=== PATIENT | female | born 1945 | race Caucasian/White ===

== ENCOUNTER 2017-01-02 11:39 | Observation (INO) | payer MEDICARE, BC ==
[2017-01-02] MEDS ORDERED: SODIUM CHLORIDE 0.9% 1,000 ML IV STA (12:02)
[2017-01-02] MEDS ORDERED: MECLIZINE 12.5 MG TAB PO STA (12:03)
[2017-01-02] MEDS ORDERED: METOCLOPRAMIDE 5 MG/ML 2 ML VIAL IVP STA (12:03)
--- NOTE | 2017-01-02 12:05 | ED ---
General Adult HPI - General Chief complaint: Dizziness Stated complaint: weakness Time Seen by Provider: 01/02/17 11:59 Source: patient, RN notes reviewed Mode of arrival: wheelchair Limitations: no limitations - History of Present Illness Initial comments: Patient is a pleasant 71-year-old female presenting to the emergency department with dizziness. Symptoms started a couple of weeks ago. Symptoms have progressively worsened. Symptoms are positional. Patient feels a spinning sensation. Symptoms worsen with upright position and improved with lying down or rest. Patient feels she is leaning towards left side. Patient denies any left-sided weakness. - Related Data Home Medications Medication Instructions Recorded Confirmed Alendronate Sodium [Fosamax] 70 mg PO KING 01/02/17 01/02/17 Amitriptyline HCl [Elavil] 10 mg PO DAILY 01/02/17 01/02/17 Aspirin [Adult Low Dose Aspirin EC] 81 mg PO DAILY 01/02/17 01/02/17 Clopidogrel [Plavix] 75 mg PO DAILY 01/02/17 01/02/17 Losartan/Hydrochlorothiazide 1 tab PO DAILY 01/02/17 01/02/17 [Losartan-Hctz 50-12.5 mg Tab] Simvastatin [Zocor] 40 mg PO HS 01/02/17 01/02/17 Allergies Allergy/AdvReac Type Severity Reaction Status Date / Time Sulfa (Sulfonamide Allergy Swelling Verified 01/02/17 13:37 Antibiotics) Review of Systems ROS Statement: Those systems with pertinent positive or pertinent negative responses have been documented in the HPI. ROS Other: All systems not noted in ROS Statement are negative. Constitutional: Denies: fever Eyes: Denies: eye pain ENT: Denies: ear pain Respiratory: Denies: cough Cardiovascular: Denies: chest pain Endocrine: Denies: fatigue Gastrointestinal: Denies: abdominal pain Genitourinary: Denies: dysuria Musculoskeletal: Denies: back pain Skin: Denies: rash Neurological: Reports: vertigo. Denies: headache, weakness Past Medical History Past Medical History: CVA/TIA, Hyperlipidemia, Hypertension History of Any Multi-Drug Resistant Organisms: None Reported Past Surgical History: No Surgical Hx Reported Past Psychological History: Anxiety Smoking Status: Never smoker Past Alcohol Use History: None Reported Past Drug Use History: None Reported General Exam Limitations: no limitations General appearance: alert, in no apparent distress Head exam: Present: atraumatic Eye exam: Present: normal appearance, PERRL, EOMI. Absent: nystagmus ENT exam: Present: normal oropharynx Neck exam: Present: normal inspection Respiratory exam: Present: normal lung sounds bilaterally Cardiovascular Exam: Present: regular rate, normal rhythm GI/Abdominal exam: Present: soft. Absent: tenderness Extremities exam: Present: normal inspection Neurological exam: Present: alert, CN II-XII intact. Absent: motor sensory deficit Expanded Speech: Present: fluid speech Cranial nerves: EOM's Intact: Normal, Facial Sensation: Normal Cerebellar function: Finger to Nose: Normal Sensory exam: Upper Extremity Light Touch: Normal, Lower Extremity Light Touch: Normal Motor strength exam: RUE: 5, LUE: 5, RLE: 5, LLE: 5 Eye Response: (4) open spontaneously Motor Response: (6) obeys commands Verbal Response: (5) oriented Psychiatric exam: Present: normal affect, normal mood Skin exam: Absent: rash Course Vital Signs 01/02/17 01/02/17 11:51 14:21 Temperature 98.3 F Pulse Rate 89 73 Respiratory 18 18 Rate Blood Pressure 196/92 122/57 O2 Sat by Pulse 97 98 Oximetry EKG Findings - EKG Comments: EKG Findings:: Normal sinus rhythm 76. KS 150. QRS 76. QT 402. QTC 452. Left axis. Normal QRS. No acute ST change. Medical Decision Making - Medical Decision Making Patient reevaluated and updated. Case discussed with Dr. cervantes, who will admit for Dr. Campos. Patient is improved however still has some dizziness. - Lab Data Result diagrams: 01/02/17 12:10 01/02/17 12:10 Lab Results 01/02/17 01/02/17 01/02/17 Range/Units 12:10 12:10 12:10 WBC 8.0 (3.8-10.6) k/uL RBC 4.53 (3.80-5.40) m/uL Hgb 14.0 (11.4-16.0) gm/dL Hct 40.9 (34.0-46.0) % MCV 90.2 (80.0-100.0) fL MCH 30.9 (25.0-35.0) pg MCHC 34.2 (31.0-37.0) g/dL RDW 13.8 (11.5-15.5) % Plt Count 370 (150-450) k/uL Neutrophils % 63 % Lymphocytes % 25 % Monocytes % 6 % Eosinophils % 3 % Basophils % 1 % Neutrophils # 5.0 (1.3-7.7) k/uL Lymphocytes # 2.0 (1.0-4.8) k/uL Monocytes # 0.4 (0-1.0) k/uL Eosinophils # 0.3 (0-0.7) k/uL Basophils # 0.1 (0-0.2) k/uL PT (9.0-12.0) sec INR (<1.1) APTT (22.0-30.0) sec Sodium 142 (137-145) mmol/L Potassium 4.5 (3.5-5.1) mmol/L Chloride 106 (98-107) mmol/L Carbon Dioxide 26 (22-30) mmol/L Anion Gap 10 mmol/L BUN 14 (7-17) mg/dL Creatinine 0.82 (0.52-1.04) mg/dL Est GFR (MDRD) Af Amer >60 (>60 ml/min/1.73 sqM) Est GFR (MDRD) Non-Af >60 (>60 ml/min/1.73 sqM) Glucose 105 H (74-99) mg/dL Calcium 9.8 (8.4-10.2) mg/dL Total Bilirubin 0.7 (0.2-1.3) mg/dL AST 23 (14-36) U/L ALT 32 (9-52) U/L Alkaline Phosphatase 88 (38-126) U/L Total Creatine Kinase 38 (30-135) U/L CK-MB (CK-2) 0.2 (0.0-2.4) ng/mL CK-MB (CK-2) Rel Index 0.5 Troponin I <0.012 (0.000-0.034) ng/mL Total Protein 7.4 (6.3-8.2) g/dL Albumin 4.4 (3.5-5.0) g/dL 01/02/17 Range/Units 12:10 WBC (3.8-10.6) k/uL RBC (3.80-5.40) m/uL Hgb (11.4-16.0) gm/dL Hct (34.0-46.0) % MCV (80.0-100.0) fL MCH (25.0-35.0) pg MCHC (31.0-37.0) g/dL RDW (11.5-15.5) % Plt Count (150-450) k/uL Neutrophils % % Lymphocytes % % Monocytes % % Eosinophils % % Basophils % % Neutrophils # (1.3-7.7) k/uL Lymphocytes # (1.0-4.8) k/uL Monocytes # (0-1.0) k/uL Eosinophils # (0-0.7) k/uL Basophils # (0-0.2) k/uL PT 9.6 (9.0-12.0) sec INR 0.9 (<1.1) APTT 22.1 (22.0-30.0) sec Sodium (137-145) mmol/L Potassium (3.5-5.1) mmol/L Chloride (98-107) mmol/L Carbon Dioxide (22-30) mmol/L Anion Gap mmol/L BUN (7-17) mg/dL Creatinine (0.52-1.04) mg/dL Est GFR (MDRD) Af Amer (>60 ml/min/1.73 sqM) Est GFR (MDRD) Non-Af (>60 ml/min/1.73 sqM) Glucose (74-99) mg/dL Calcium (8.4-10.2) mg/dL Total Bilirubin (0.2-1.3) mg/dL AST (14-36) U/L ALT (9-52) U/L Alkaline Phosphatase (38-126) U/L Total Creatine Kinase (30-135) U/L CK-MB (CK-2) (0.0-2.4) ng/mL CK-MB (CK-2) Rel Index Troponin I (0.000-0.034) ng/mL Total Protein (6.3-8.2) g/dL Albumin (3.5-5.0) g/dL - Radiology Data Radiology results: image reviewed (Computed tomography scan of the brain reveals no acute process. Two-view chest x-ray shows no acute process.) Disposition Clinical Impression: Vertigo, Balance disorder Disposition: ADMITTED IP TO THIS [facility] Referrals: Jose Campos MD [Primary Care Provider] - 1-2 days Time of Disposition: 14:26
[2017-01-02 12:20] LABS: Basophils # (A) 0.1 k/uL (0-0.2); Basophils % (A) 1 %; CH 30.8; CHCM 34.4; Eosinophils # (A) 0.3 k/uL (0-0.7); Eosinophils % (A) 3 %; HCT 40.9 % (34.0-46.0); HDW 2.76; Luc % (Auto) 3; Lymphocytes % (A) 25 %; MCH 30.9 pg (25.0-35.0); MCHC 34.2 g/dL (31.0-37.0); MCV 90.2 fL (80.0-100.0); Mean Platelet Volume 6.1; Monocytes # (A) 0.4 k/uL (0-1.0); Monocytes % (A) 6 %; Neutrophils % (A) 63 %; RBC 4.53 m/uL (3.80-5.40); RDW 13.8 % (11.5-15.5); WBC (Perox) 7.38
[2017-01-02 12:31] LABS: ALT 32 U/L (9-52); AST 23 U/L (14-36); Alkaline Phosphatase 88 U/L (38-126); Anion Gap 10 mmol/L; Blood Urea Nitrogen 14 mg/dL (7-17); Calcium 9.8 mg/dL (8.4-10.2); Carbon Dioxide 26 mmol/L (22-30); Chloride 106 mmol/L (98-107); Glucose 105 mg/dL (74-99); Non-African American GFR(MDRD) >60 (>60 ml/min/1.73 sqM); Potassium 4.5 mmol/L (3.5-5.1); Sodium 142 mmol/L (137-145); Total Bilirubin 0.7 mg/dL (0.2-1.3); Total Protein 7.4 g/dL (6.3-8.2)
[2017-01-02 12:36] LABS: INR 0.9 (<1.1); Partial Thromboplastin Time 22.1 sec (22.0-30.0); Prothrombin Time 9.6 sec (9.0-12.0)
[2017-01-02 12:41] LABS: Creatine Kinase 38 U/L (30-135)
--- NOTE | 2017-01-02 12:48 | XR ---
EXAMINATION TYPE: XR chest 2V DATE OF EXAM: 01/02/2017 12:44 PM COMPARISON: 08/21/2012 INDICATION: Weakness dizziness asthma history TECHNIQUE: Single frontal view of the chest is obtained. FINDINGS: The heart size is normal. The pulmonary vasculature is normal. The lungs are clear. IMPRESSION: 1. No acute pulmonary process.
[2017-01-02 12:54] LABS: Creatine Kinase MB 0.2 ng/mL (0.0-2.4); Troponin I <0.012 ng/mL (0.000-0.034)
--- NOTE | 2017-01-02 13:07 | CT ---
EXAMINATION TYPE: CT brain wo con DATE OF EXAM: 01/02/2017 1:00 PM COMPARISON: 02/22/2016 HISTORY: 71-year-old female vertigo and dizziness TECHNIQUE: Examination was done in axial plane without intravenous contrast. Coronal and sagittal r econstructions performed. CT DLP: 969 mGycm Automated exposure control for dose reduction was used. FINDINGS: There is no evidence of acute intracranial hemorrhage, acute ischemic changes, mass, mass-effect, or extra-axial fluid collection. There is no effacement of cerebral sulci or basal subarachnoid cister ns. There is no hydrocephalus. There is no midline shift. Hernadez-white matter distinction is preserv ed. Similar mild generalized cerebral atrophy. Paranasal sinuses and mastoid air cells are well pneumatized. Orbits and globes are intact. IMPRESSION: No acute intracranial abnormality seen.
[2017-01-02] MEDS ORDERED: ASPIRIN 325 MG TAB PO STA (14:26)
[2017-01-02] MEDS ORDERED: SODIUM CHLORIDE 0.9% 1,000 ML IV SCH (14:30)
[2017-01-02] MEDS ORDERED: MECLIZINE 25 MG TAB PO PRN (14:30)
[2017-01-02] MEDS ORDERED: SCOPOLAMINE 1.5MG/72HR PATCH TRANSDERM STA (14:30)
[2017-01-02 14:46] LABS: Appearance,Urine Clear (Clear); Bacteria,Urine Rare /hpf; Bilirubin,Urine Negative (Negative); Glucose,Urine (UA) Negative (Negative); Ketones,Urine Negative (Negative); Leukocyte Esterase,Urine Small (Negative); Nitrite,Urine Negative (Negative); PH, Urine 6.5 (5.0-8.0); Particle Count 274; Protein,Urine Negative (Negative); Specific Gravity,Urine 1.002 (1.001-1.035); UA Billing (MACRO vs. MICRO) MICRO; Urobilinogen,Urine <2.0 mg/dL (<2.0); WBC,Urine 18 /hpf (0-5)
--- NOTE | 2017-01-02 15:17 | US ---
EXAMINATION TYPE: US carotid duplex BILAT DATE OF EXAM: 01/02/2017 3:01 PM COMPARISON: NONE CLINICAL HISTORY: Stenosis. left sided weakness EXAM MEASUREMENTS: RIGHT: Peak Systolic Velocity (PSV) cm/sec ----- Right CCA: 63.6 ----- Right ICA: 112.9 ----- Right ECA: 91.9 ICA/CCA ratio: 1.8 RIGHT: End Diastole cm/sec ----- Right CCA: 13.9 ----- Right ICA: 35.4 ----- Right ECA: 0.0 LEFT: Peak Systolic Velocity (PSV) cm/sec ----- Left CCA: 64.5 ----- Left ICA: 188.0 ----- Left ECA: 171.7 ICA/CCA ratio: 2.9 LEFT: End Diastole cm/sec ----- Left CCA: 12.1 ----- Left ICA: 55.5 ----- Left ECA: 13.7 VERTEBRALS (direction of flow): Right Vertebral: Antegrade Left Vertebral: Antegrade Elevated velocities left ICA & ECA , shadowing plaque noted, left greater than right. IMPRESSION: 1. Moderate stenosis between 50 and 69% left internal carotid artery. Criteria for Assigning % of Stenosis / Diameter reduction (Estimation based on the indirect measurements of the internal carotid artery velocities (ICA PSV). 1. Normal (no stenosis)=ICA PSV < 125 cm/s: ratio < 2.0: ICA EDV<40 cm/s. 2. Less than 50% stenosis=ICA PSV < 125 cm/s: ratio < 2.0: ICA EDV<40 cm/s. 3. 50 to 69% stenosis=ICA PSV of 125 to 230 cm/s: ration 2.0 ? 4.0: ICA EDV 40-100 cm/s. 4. Greater than 70% stenosis to near occlusion= ICA PSV > 230 cm/s: ratio > 4.0: ICA EDV > 100 cm/s. 5. Near occlusion= ICA PSV velocities may be low or undetectable: variable ratio and ICA EDV. 6. Total occlusion=unable to detect flow.
--- NOTE | 2017-01-02 17:30 | MR ---
EXAMINATION TYPE: MR brain wo/w con DATE OF EXAM: 01/02/2017 5:08 PM COMPARISON: 03/05/2016 HISTORY: Dizziness, off balance, leaning toward left side CONTRAST: Performed utilizing 15 mL intravenous MultiHance gadolinium contrast. TECHNIQUE: Multiplanar, multiecho imaging on a 3.0 Nia magnet is performed through the brain. Stud y is performed within 24 hours of arrival to the hospital. The craniovertebral junction is normal. The pituitary is normal. Diffusion-weighted imaging is performed. No abnormal hyperintensity is present to suggest an acute i ntracranial infarct or acute ischemic change. Signal through the brain is normal. Cerebellum appears normal. Small amount of signal change may be a djacent to the fifth 6 root complex on the left within the brainstem on inversion recovery weighted s equences. T2 and diffusion-weighted imaging however is normal in this region. Series 501 image 10. So me mild periventricular white matter changes present. Ventricles and sulci are appropriate for the patient age. IMPRESSIONS: 1. No acute intracranial process. 2. Mild white matter ischemic type changes may be present in the periventricular region. 3. Artifact on the inversion recovery weighted sequence may be adjacent to the left fifth 6th nerve r oot complex within the brainstem and not identified on prior studies or on additional pulse sequences of the current exam.
[2017-01-02] MEDS: METOCLOPRAMIDE 5 MG/ML 2 ML VIAL IVP SCH (17:47)
--- NOTE | 2017-01-02 18:08 | P.CNNES ---
History of Present Illness Consult date: 01/02/17 Requesting physician: Aroldo Wade Reason for Consult: Vertigo History of Present Illness: Patient is a pleasant 71-year-old female who is being evaluated by the neurology service on 01/02/2017 per the request of Dr. Wade for vertigo. Patient reports she had a CVA in 2004 with similar symptoms. Patient reports symptoms of vertigo started couple weeks ago. Patient reports symptoms have progressively gotten worse. She finally decided to come to the emergency at [facility]. Patient does report room spinning sensation. She reports symptoms are worse in the upright position and improved with lying down or rest. Patient also feels she is leaning toward the left side. There is no left-sided weakness noted. CT of the brain was done and shows no acute intracranial abnormality. Patient had MRI done which shows no acute intracranial process as well. MRI does show mild white matter ischemic changes. MRI shows artifact on sequence adjacent to the left fifth nerve root complex within the brainstem. Patient does report having seen ophthalmology recently and has a cyst that will be removed within the next few weeks behind the left eye. Carotid Doppler was done and shows stenosis of 50-69 % in the left internal carotid artery. Patient states she follows with Dr. Hernandez every 6 months for this. Labs on admission were WBCs 8.0, RBCs 4.5, hemoglobin 14.0, hematocrit 40.9. Comprehensive metabolic profile was within normal limits except for elevated glucose of 105. UA reveals a urinary tract infection. Upon admission, patient had elevated blood pressure 196/92. At the time of my evaluation, patient's resting comfortably in bed and appears to be in no acute distress. Family is at the bedside. Review of Systems REVIEW OF SYSTEMS: Otherwise unremarkable and noncontributory. Past Medical History Past Medical History: CVA/TIA, Hyperlipidemia, Hypertension History of Any Multi-Drug Resistant Organisms: None Reported Past Surgical History: No Surgical Hx Reported Past Psychological History: Anxiety Smoking Status: Never smoker Past Alcohol Use History: None Reported Past Drug Use History: None Reported Medications and Allergies Home Medications Medication Instructions Recorded Confirmed Type Alendronate Sodium [Fosamax] 70 mg PO KING 01/02/17 01/02/17 History Amitriptyline HCl [Elavil] 10 mg PO DAILY 01/02/17 01/02/17 History Aspirin [Adult Low Dose Aspirin EC] 81 mg PO DAILY 01/02/17 01/02/17 History Clopidogrel [Plavix] 75 mg PO DAILY 01/02/17 01/02/17 History Losartan/Hydrochlorothiazide 1 tab PO DAILY 01/02/17 01/02/17 History [Losartan-Hctz 50-12.5 mg Tab] Simvastatin [Zocor] 40 mg PO HS 01/02/17 01/02/17 History Allergies Allergy/AdvReac Type Severity Reaction Status Date / Time Sulfa (Sulfonamide Allergy Swelling Verified 01/02/17 13:37 Antibiotics) Physical Examination - Vital Signs Vital Signs: Vital Signs Temp Pulse Pulse Resp BP BP Pulse Ox 01/02/17 16:00 97.5 F L 67 18 118/57 100 01/02/17 15:23 96.9 F L 71 18 144/63 99 01/02/17 14:21 73 18 122/57 98 01/02/17 11:51 98.3 F 89 18 196/92 97 Intake and Output 01/02/17 01/02/17 01/02/17 06:59 14:59 22:59 Intake Total 1000 Balance 1000 Intake: Amount of Fluid Infused ( 1000 ml) Other: Voiding Method Toilet Weight 72.575 kg Patient Weight 01/03/17 06:59 Weight 72.575 kg PHYSICAL EXAM: GENERAL APPEARANCE: Patient is a well-developed, female who appears to be in no acute distress. HEENT: Normocephalic, atraumatic, no facial asymmetry is seen. Neck is supple with no masses felt. CARDIOVASCULAR: Regular rate and rhythm. ABDOMEN: Nontender, nondistended. EXTREMITIES: Show no edema or clubbing. NEUROLOGICAL EXAM: Patient is awake, alert, and oriented 3. Speech and language are normal. No facial asymmetry is seen on cranial nerve testing. Strength is full in all 4 extremities. Sensory exam to light touch is normal in all 4 extremities. No tremors or seizure-like activity is noted. No pronator drift is seen. No dysmetria. Results - Laboratory Findings CBC and BMP: 01/02/17 12:10 01/02/17 12:10 Abnormal Lab Findings: Abnormal Labs 01/02/17 01/02/17 12:10 14:22 Glucose 105 H Ur Leukocyte Esterase Small H Urine WBC 18 H Urine Bacteria Rare H Assessment and Plan Plan: Impression: 1. Vertigo 2. Balance disturbance 3. Hypertension 4. History of CVA Recommendations: It does appear patient is experiencing symptoms of vertigo. She reports vertigo as being positional. As you recall, CT of the brain was negative for any intracranial abnormality. MRI confirms no acute intracranial process. MRI does reveal possible artifact on the inversion recovery weighted sequence adjacent to the left fifth 6th nerve root complex within the brainstem. Patient reports having cyst behind her eye which she has already consulted with ophthalmology for and is planning surgery in the near future. I recommend consulting Dr. Hernandez for carotid artery evaluation as patient is known to him. I recommend to continue on aspirin and Plavix. I recommend continuing meclizine 25 mg 3 times a day around the clock for 36 hours. Patient 's already had a dose of meclizine and reports improvement in symptoms. Further workup for her vertigo can be done as an outpatient. Testing for vestibular pathology can be done in office. I will continue to follow, but symptoms seem to be consistent with benign paroxysmal positional vertigo. I can offer vestibular rehab as an outpatient in my office. On admission patient had elevated blood pressure. I recommend blood pressure control. I recommend consult to physical therapy. I will continue to follow with you. Further recommendations to follow. Thank you for allowing me to participate in the care of your patient. Feel free to call with any questions or concerns. I performed an examination of the patient and discussed the management with the ENGLISH FACULTY MEMBER. I have reviewed the ENGLISH FACULTY MEMBER notes and agree with the findings and plan of care.
[2017-01-02] MEDS ORDERED: ATORVASTATIN 20 MG TAB PO SCH (21:00)
[2017-01-03] MEDS: METOCLOPRAMIDE 5 MG/ML 2 ML VIAL IVP SCH ×3 (00:52→12:12)
[2017-01-03 04:07] VITALS: RESP 16
[2017-01-03 05:41] LABS: Cholesterol 203 mg/dL (<200); HDL Cholesterol 54 mg/dL (40-60); Triglycerides 149 mg/dL (<150)
[2017-01-03] MEDS ORDERED: CLOPIDOGREL 75 MG TAB PO SCH (09:00)
[2017-01-03] MEDS ORDERED: LOSARTAN-HCTZ 50-12.5 MG 1 EACH TAB PO SCH (09:00)
[2017-01-03] MEDS ORDERED: ASPIRIN 325 MG TAB PO SCH (09:00)
[2017-01-03] MEDS ORDERED: AMITRIPTYLINE HCL 10 MG TAB PO SCH (09:15)
--- NOTE | 2017-01-03 09:56 | ECHOF ---
Referral Reason:Thrombus MEASUREMENTS -------- HEIGHT: 160.0 cm WEIGHT: 72.6 kg BP: IVSd: 0.7 cm (0.6 - 1.1) LVIDd: 3.6 cm (3.9 - 5.3) LVPWd: 0.9 cm (0.6 - 1.1) IVSs: 1.5 cm LVIDs: 2.8 cm LVPWs: 1.1 cm Ao Diam: 2.9 cm (2.0 - 3.7) AV Cusp: 1.9 cm (1.5 - 2.6) LA Diam: 2.2 cm (2.7 - 3.8) MV EXCURSION: 18.221 mm (> 18.000) MV EF SLOPE: 116 mm/s (70 - 150) EPSS: 0.4 cm MV E George: 0.74 m/s MV DecT: 317 ms MV A George: 0.59 m/s MV E/A Ratio: 1.26 RAP: 5.00 mmHg RVSP: 10.65 mmHg FINDINGS -------- Sinus rhythm. This was a technically difficult study with suboptimal views. Left ventricular wall thickness is normal. Overall left ventricular systolic function is normal with, an EF between 55 - 60 %. The right ventricle is normal in size and function. The left atrium is normal in size. The right atrium is normal in size. The aortic valve was not well visualized. There is trace mitral regurgitation. Trace tricuspid regurgitation present. The right ventricular systolic pressure, as measured by Doppler, is 10.65mmHg. Pulmonic valve appears structurally normal. The aortic root size is normal. The pericardium is normal. CONCLUSIONS -------- 1. Sinus rhythm. 2. Trace tricuspid regurgitation present. 3. The right ventricular systolic pressure, as measured by Doppler, is 10.65mmHg. 4. Pulmonic valve appears structurally normal. 5. The aortic root size is normal. 6. The pericardium is normal. 7. This was a technically difficult study with suboptimal views. 8. Left ventricular wall thickness is normal. 9. Overall left ventricular systolic function is normal with, an EF between 55 - 60 %. 10. The right ventricle is normal in size and function. 11. The left atrium is normal in size. 12. The right atrium is normal in size. 13. The aortic valve was not well visualized. 14. There is trace mitral regurgitation. DIRECTOR OF HOUSING: Gabriela Ball RDCS
[2017-01-03 10:44] LABS: Appearance,Urine Turbid (Clear); Bacteria,Urine Occasional /hpf; Bilirubin,Urine Negative (Negative); Glucose,Urine (UA) Negative (Negative); Ketones,Urine Negative (Negative); Leukocyte Esterase,Urine Large (Negative); Mucus,Urine Rare /hpf; Nitrite,Urine Negative (Negative); PH, Urine 5.5 (5.0-8.0); Particle Count 7647; Protein,Urine Trace (Negative); RBC,Urine 6 /hpf (0-5); Specific Gravity,Urine 1.016 (1.001-1.035); Squamous Epithelial Cell,Urine 5 /hpf (0-4); UA Billing (MACRO vs. MICRO) MICRO; Urobilinogen,Urine <2.0 mg/dL (<2.0); WBC,Urine >182 /hpf (0-5)
--- NOTE | 2017-01-03 11:17 | P.PN ---
Subjective Principal diagnosis: Patient is a pleasant 71-year-old female who is being followed by the neurology service for vertigo. Patient reports symptoms of vertigo started a few weeks ago. Patient reports symptoms have progressively gotten worse. CT of the brain was done which showed no acute abnormality. MRI was done which shows no acute intracranial process as well. Carotid Doppler shows stenosis of 50-69% in the left internal carotid artery for which she follows with Dr. David granado. Patient was started on meclizine which she states is helping. Patient has been up and around with less complaints of vertigo. At the time of my evaluation, patient is resting comfortably in bed and appears to be in no acute distress. Objective - Vital Signs Vital signs: Vital Signs Temp 98.4 F 01/03/17 07:45 Pulse 94 01/03/17 07:45 Resp 16 01/03/17 07:45 BP 121/59 01/03/17 07:45 Pulse Ox 99 01/03/17 07:45 Intake & Output 01/02/17 01/03/17 01/03/17 18:59 06:59 18:59 Intake Total 1000 Balance 1000 Weight 72.575 kg 72.575 kg Intake: Amount of Fluid Infused ( 1000 ml) Other: Voiding Method Toilet Toilet Toilet # Voids 3 - Exam PHYSICAL EXAM: GENERAL APPEARANCE: Patient is a well-developed, female who appears to be in no acute distress. HEENT: Normocephalic, atraumatic, no facial asymmetry is seen. Neck is supple with no masses felt. CARDIOVASCULAR: Regular rate and rhythm. ABDOMEN: Nontender, nondistended. EXTREMITIES: Show no edema or clubbing. NEUROLOGICAL EXAM: Patient is awake, alert, and oriented 3. Speech and language are normal. Strength is full in all 4 extremities. Sensory exam to light touch is normal in all 4 extremities. No facial asymmetry is seen on cranial nerve testing. No seizures or tremors noted. - Labs CBC & Chem 7: 01/02/17 12:10 01/02/17 12:10 Labs: Abnormal Lab Results - Last 24 Hours (Table) 01/02/17 01/02/17 01/02/17 Range/Units 12:10 12:10 14:22 Glucose 105 H (74-99) mg/dL Cholesterol 203 H (<200) mg/dL LDL Cholesterol, Calc 119 H (0-99) mg/dL Urine Appearance (Clear) Urine Protein (Negative) Urine Blood (Negative) Ur Leukocyte Esterase Small H (Negative) Urine RBC (0-5) /hpf Urine WBC 18 H (0-5) /hpf Urine WBC Clumps (None) /hpf Ur Squamous Epith Cells (0-4) /hpf Urine Bacteria Rare H (None) /hpf Urine Mucus (None) /hpf 01/03/17 Range/Units 09:10 Glucose (74-99) mg/dL Cholesterol (<200) mg/dL LDL Cholesterol, Calc (0-99) mg/dL Urine Appearance Turbid H (Clear) Urine Protein Trace H (Negative) Urine Blood Small H (Negative) Ur Leukocyte Esterase Large H (Negative) Urine RBC 6 H (0-5) /hpf Urine WBC >182 H (0-5) /hpf Urine WBC Clumps Many H (None) /hpf Ur Squamous Epith Cells 5 H (0-4) /hpf Urine Bacteria Occasional H (None) /hpf Urine Mucus Rare H (None) /hpf Assessment and Plan Plan: Impression: 1. Vertigo 2. Balance disturbance 3. Hypertension 4. History of CVA Recommendations: It does appear patient is experiencing symptoms of vertigo. She reports vertigo as being positional. As you recall, CT of the brain was negative for any intracranial abnormality. MRI confirms no acute intracranial process. Nothing on the MRI explains the vertigo. This is likely peripheral vertigo. I would continue Antivert and I will consult ENT. I recommend to continue aspirin and Plavix. Further workup for her vertigo can be done as an outpatient. Testing for vestibular pathology can be done in office. I will continue to follow, but symptoms seem to be consistent with benign paroxysmal positional vertigo. On admission patient had elevated blood pressure. I recommend blood pressure control. Patient is stable from a neurology standpoint for discharge. I will continue to follow with you on an as-needed basis. Feel free to call with any questions or concerns. I performed an examination of the patient and discussed the management with the TUBING MILL SETTER. I have reviewed the TUBING MILL SETTER notes and agree with the findings and plan of care.
[2017-01-03] MEDS ORDERED: ENOXAPARIN 40 MG/0.4 ML SYRINGE SQ SCH (14:00)
[2017-01-03] MEDS ORDERED: CEFUROXIME 250 MG TAB PO SCH (14:00)
--- NOTE | 2017-01-03 15:51 | HP ---
DATE OF ADMISSION: 01/02/2017 PRESENTING COMPLAINT: Dizziness. HISTORY OF PRESENTING COMPLAINT: This is a very pleasant 71-year-old patient of Dr. Campos. Her chronic stable medical conditions include asthma, hypertension, hyperlipidemia. For about 3 weeks patient has been having episodes when she is very dizzy, tending to fall on the left side. No change in her speech, no change in her vision, no headache. But she does state that she has some numbness of the left side of the face. This has been going on for 3 weeks. Sometimes lying in bed also she gets this. ( ) she needs help from her because she tends to fall on the left side. She did have a small stroke in the past, with no residual. Patient also had some burning in the urine. REVIEW OF SYSTEMS: CONSTITUTIONAL: None. HEENT: None. RESPIRATORY: None. CARDIOVASCULAR: None. GASTROINTESTINAL: None. GENITOURINARY: None. MUSCULOSKELETAL: None. DERMATOLOGIC: None. HEMATOLOGIC: None. LYMPHATICS: None. PSYCHIATRY: None. NEUROLOGICAL: As above. PAST HISTORY: 1. Asthma. 2. Hypertension. 3. Hyperlipidemia. 4. Stroke. PAST SURGICAL HISTORY: Appendectomy. SOCIAL HISTORY: . No smoking. No alcohol. FAMILY HISTORY: Patient was adopted. HOME MEDICATIONS: 1. Zocor 40 mg p.o. at bedtime. 2. Losartan/hydrochlorothiazide 50/12.5 one tablet p.o. daily. 3. Elavil 10 mg p.o. daily. 4. Plavix 75 mg p.o. daily. 5. Aspirin 81 mg p.o. daily. 6. Fosamax 70 mg p.o. on Sundays. PHYSICAL EXAMINATION: VITAL SIGNS ON PRESENTATION: Temperature 98.3, pulse 69, respiration 18, blood pressure 196/92, pulse ox 97% on room air. Repeat blood pressure was 122/57. GENERAL APPEARANCE: Average build. Sitting up. Not in distress. EYES: Pupils equal. Conjunctivae normal. HEENT: Oral cavity normal. NECK: JVD not raised. Mass not palpable. RESPIRATORY: Effort normal. Lungs are clear. CARDIOVASCULAR: First and second sounds normal. No edema. ABDOMEN: Soft, nontender. Liver and spleen not palpable. LYMPHATIC: No lymph node palpable in neck or axillae. PSYCHIATRY: Alert and oriented x3. Mood and affect normal. NEUROLOGICAL: Slightly decreased sensation on the left side of the face. Left-sided dysdiadochokinesia. Patient was witnessed to walk and is now walking better. INVESTIGATIONS: White count 8, hemoglobin 14.0. Potassium 4.5. BUN and creatinine are normal. LDL is 119. UA is positive for leukocyte esterase, WBC. EKG shows normal sinus rhythm. CT scan of the brain: nil acute. On carotid Doppler, left internal carotid artery shows 50% to 69% left internal carotid artery stenosis. Two-D echo shows preserved LV function. MRI of the brain reports no acute intracranial process. Artifact on inversion recovery weighted sequence adjacent to the left fifth, sixth nerve root complex within the brainstem. ASSESSMENT: 1. This is a patient who presents with a 3-week history of falling on the left side, some left facial numbness, and also dysdiadochokinesia on physical examination. She was definitely tending to fall on the left side prior to coming in. Clinical symptomatology is compatible with a cerebellar stroke, but the MRI does not reveal anything of the same. Will ask the radiologist look again at the MRI. 2. Intermittent asthma, controlled. 3. Essential hypertension. 4. Hyperlipidemia. 5. Acute urinary tract infection, present on admission. PLAN: At this point, patient is already on aspirin and Plavix. Will increase the Lipitor to 40 mg. Will start the patient on Ceftin. Care was discussed in detail with the patient's family at the bedside. Await further input from Neurology, and will go from there.
[2017-01-03 15:54] VITALS: BP 135/65; PULSE 91; TEMP 97.8
[2017-01-03] MEDS ORDERED: ATORVASTATIN 40 MG TAB PO SCH (21:00)
[2017-01-04] MEDS ORDERED: ASPIRIN 81 MG CHEW PO SCH (09:00)
[2017-01-04] MEDS ORDERED: NON-FORMULARY DRUG (Alendronate Sodium [Fosamax] 70 MG) PO SCH (09:04)
--- NOTE | 2017-02-06 20:11 | DS ---
DATE OF ADMISSION: 01/02/2017 DATE OF DISCHARGE: 01/03/2017 FINAL DIAGNOSES: 1. Possibly acute labyrinthitis. 2. Intermittent asthma, controlled. 3. Essential hypertension. 4. Hypercalcemia. 5. Acute urinary tract infection, present on admission. HOSPITAL COURSE: This patient presented with acute dizziness. CT scan of the brain was unremarkable. Carotid Doppler showed 50 to 69% left internal carotid artery stenosis. MRI of the brain showed nonspecific changes. A 2-D echocardiogram, no thrombus reported. Seen by Dr. Avila from neurology. [place] to be a peripheral cause like ( ) doing better with Antivert. On exam, lungs are clear. CARDIOVASCULAR: First and second sounds normal. Patient walking much better. DISCHARGE MEDICATIONS: 1. Fosamax 70 mg on Thursday. 2. Elavil 10 mg p.o. daily. 3. Aspirin 81 mg a day. 4. Plavix 75 mg daily. 5. Losartan hydrochlorothiazide 50/12.5 1 tablet daily. 6. Lipitor 40 mg q.h.s. 7. Ceftin 250 mg p.o. b.i.d. 6 tablets. 8. Antivert 25 mg q.i.d. for 3 days, then p.r.n. Follow with Dr. Campos in [address] Avila in one week.
== END 2017-01-03 17:36 | disposition home or self-care (01) ==
LOC: EC 11:39 → 3OBS 14:26 → 3SUR 19:00
PROVIDERS: ADMIT Hospitalist; ATTEND Hospitalist
DX: R42 Dizziness and giddiness (principal); J45.20 Mild intermittent asthma, uncomplicated; I10 Essential (primary) hypertension; E78.5 Hyperlipidemia, unspecified; R20.0 Anesthesia of skin; N39.0 Urinary tract infection, site not specified; F41.9 Anxiety disorder, unspecified; Z79.899 Other long term (current) drug therapy; Z79.82 Long term (current) use of aspirin; Z79.02 Long term (current) use of antithrombotics/antiplatelets; Z88.2 Allergy status to sulfonamides; Z86.73 Personal history of transient ischemic attack (TIA), and cerebral infarction without residual deficits; Z79.83 Long term (current) use of bisphosphonates; R29.6 Repeated falls
CPT/HCPCS: 96376; 96361; 96374; 99285; 36415; 93005; 93306; 97161; 80061; 80053; 82550; 82553; 84484; 85025; 85610; 85730; 81001 ×2; 71020; 93880; 70450; 70553; G0378 ×2; J2765; J1650; A9577

== ENCOUNTER → 2017-02-26 | Outpatient (CLI) | payer MEDICARE, BC ==
--- NOTE | 2017-02-26 08:37 | MR ---
EXAMINATION TYPE: MR brain wo/w con DATE OF EXAM: 02/26/2017 COMPARISON: MRI brain January 02, 2017 HISTORY: Dizziness per patient and order. TECHNIQUE: Multiplanar, multisequence images of the brain and brainstem is performed without and with IV contras t, utilizing 15 mL intravenous MultiHance . FINDINGS: Diffusion weighted images demonstrate no evidence of a recent infarct or other diffusion ab normality. There is slight prominence of extra-axial CSF fluid over bilateral frontal lobe suggestin g asymmetric atrophy unchanged from prior study. The ventricular system and cisternal spaces are oth erwise normal in size and appearance for patient's age. The brain volume is age appropriate. Transep endymal flow adjacent to the ventricles is redemonstrated. There are additional tiny T2 hyperintense lesions seen best on sagittal flair sequence in the deep white matter all measuring under 4 mm in siz e. Midline structures demonstrate normal morphology. The craniocervical junction appears within normal limits. Post contrast images demonstrate no abnormal enhancement. The dural venous sinuses appear pa tent. The visualized sinuses are clear and the globes are intact. No suspicious increased fluid signa l bilateral mastoid air cells is present. IMPRESSION: Mild diffuse cerebral atrophy most prominent over the frontal lobes with mild to minimal chronic small vessel ischemic change redemonstrated without significant change from prior MRI. No abn ormal enhancing mass or new significant finding is seen to account for patient's symptoms.
== END | disposition home or self-care (01) ==
LOC: RADMRIMAIN 07:20
PROVIDERS: ATTEND Psychiatry & Neurology Neurology
DX: G31.9 Degenerative disease of nervous system, unspecified (principal); I67.82 Cerebral ischemia; R42 Dizziness and giddiness
CPT/HCPCS: 70553; A9577

== ENCOUNTER 2018-09-07 12:43 | Inpatient (IN) | payer MEDICARE, BC ==
[2018-09-07] MEDS ORDERED: SODIUM CHLORIDE 0.9% 1,000 ML IV STA (13:07)
--- NOTE | 2018-09-07 13:48 | ED ---
Abdominal Pain HPI - General Chief Complaint: Abdominal Pain Stated Complaint: poss gallbladder Time Seen by Provider: 09/07/18 12:54 Source: patient, RN notes reviewed Mode of arrival: wheelchair Limitations: no limitations - History of Present Illness Initial Comments: This a 73-year-old female presents to the emergency Department with chief complaint of right upper quadrant abdominal pain, nausea vomiting. Patient states that she has been sick last few days went to the office today and sent here for further evaluation. She has had a prior appendectomy no other abdominal surgeries. States that she's had fever at home and it was not feeling well. Denies chest pain or shortness of breath. Patient denies any chest pain, shortness breath, dysuria, hematuria, constipation. She does have slight diarrhea no melena or hematochezia. - Related Data Home Medications Medication Instructions Recorded Confirmed Alendronate Sodium [Fosamax] 70 mg PO KING 01/02/17 09/07/18 Aspirin [Adult Low Dose Aspirin EC] 81 mg PO DAILY 01/02/17 09/07/18 Clopidogrel [Plavix] 75 mg PO DAILY 01/02/17 09/07/18 Losartan/Hydrochlorothiazide 1 tab PO DAILY 01/02/17 09/07/18 [Losartan-Hctz 50-12.5 mg Tab] Ibuprofen [Motrin Ib] 400 mg PO Q6H PRN 09/07/18 09/07/18 Simvastatin 40 mg PO DAILY 09/07/18 09/07/18 Allergies Allergy/AdvReac Type Severity Reaction Status Date / Time Sulfa (Sulfonamide Allergy Swelling Verified 09/07/18 13:21 Antibiotics) Review of Systems ROS Statement: Those systems with pertinent positive or pertinent negative responses have been documented in the HPI. ROS Other: All systems not noted in ROS Statement are negative. Past Medical History Past Medical History: Asthma, CVA/TIA, Hyperlipidemia, Hypertension, Pneumonia Additional Past Medical History / Comment(s): tia 1999, "cyst on back of rt eye has appt in march w/ for poss sx" History of Any Multi-Drug Resistant Organisms: None Reported Past Surgical History: Appendectomy Past Anesthesia/Blood Transfusion Reactions: No Reported Reaction Additional Past Anesthesia/Blood Transfusion Reaction / Comment(s): pt lives with spouse, 1 dog in a single level home taht has 3 steps to enter.pt is independant, no outside services recieved and no medical equipment. pt drives. Past Psychological History: Anxiety Smoking Status: Never smoker Past Alcohol Use History: None Reported Past Drug Use History: None Reported - Past Family History Father History Unknown: Yes Additional Family Medical History / Comment(s): pt was adopted Mother History Unknown: Yes Additional Family Medical History / Comment(s): pt was adopted General Exam Limitations: no limitations General appearance: alert, in no apparent distress Head exam: Present: atraumatic, normocephalic, normal inspection Neck exam: Present: normal inspection. Absent: tenderness, meningismus, lymphadenopathy Respiratory exam: Present: normal lung sounds bilaterally. Absent: respiratory distress, wheezes, rales, rhonchi, stridor Cardiovascular Exam: Present: normal rhythm, tachycardia, normal heart sounds. Absent: systolic murmur, diastolic murmur, rubs, gallop, clicks GI/Abdominal exam: Present: soft, tenderness (Moderate right upper quadrant tenderness), normal bowel sounds. Absent: distended, guarding, rebound, rigid Back exam: Absent: CVA tenderness (R), CVA tenderness (L) Skin exam: Present: warm, dry, intact, normal color. Absent: rash Course Vital Signs 09/07/18 09/07/18 12:49 14:42 Temperature 99.8 F H 101.1 F H Pulse Rate 109 H 94 Respiratory 18 18 Rate Blood Pressure 126/79 144/69 O2 Sat by Pulse 98 98 Oximetry Medical Decision Making - Medical Decision Making 73-year-old female presented for right-sided abdominal pain and right flank pain. Patient's found to have pyelonephritis. Patient is not able tolerate oral intake at this time will be placed inpatient for IV antibiotics, IV hydration, antiemetics and pain control. - Lab Data Result diagrams: 09/07/18 13:27 09/07/18 13:27 Lab Results 09/07/18 09/07/18 09/07/18 Range/Units 13:27 13:27 13:27 WBC 10.5 (3.8-10.6) k/uL RBC 4.31 (3.80-5.40) m/uL Hgb 12.9 (11.4-16.0) gm/dL Hct 38.5 (34.0-46.0) % MCV 89.2 (80.0-100.0) fL MCH 29.9 (25.0-35.0) pg MCHC 33.5 (31.0-37.0) g/dL RDW 12.9 (11.5-15.5) % Plt Count 276 (150-450) k/uL Neutrophils % 80 % Lymphocytes % 11 % Monocytes % 6 % Eosinophils % 0 % Basophils % 1 % Neutrophils # 8.4 H (1.3-7.7) k/uL Lymphocytes # 1.1 (1.0-4.8) k/uL Monocytes # 0.6 (0-1.0) k/uL Eosinophils # 0.0 (0-0.7) k/uL Basophils # 0.1 (0-0.2) k/uL Sodium 136 L (137-145) mmol/L Potassium 3.9 (3.5-5.1) mmol/L Chloride 102 (98-107) mmol/L Carbon Dioxide 22 (22-30) mmol/L Anion Gap 12 mmol/L BUN 20 H (7-17) mg/dL Creatinine 0.87 (0.52-1.04) mg/dL Est GFR (CKD-EPI)AfAm 76 (>60 ml/min/1.73 sqM) Est GFR (CKD-EPI)NonAf 66 (>60 ml/min/1.73 sqM) Glucose 118 H (74-99) mg/dL Plasma Lactic Acid E[place]iel 1.0 (0.7-2.0) mmol/L Calcium 9.5 (8.4-10.2) mg/dL Total Bilirubin 0.7 (0.2-1.3) mg/dL AST 39 H (14-36) U/L ALT 64 H (9-52) U/L Alkaline Phosphatase 120 (38-126) U/L Total Protein 6.5 (6.3-8.2) g/dL Albumin 3.7 (3.5-5.0) g/dL Amylase 57 (30-110) U/L Lipase 90 (23-300) U/L Urine Color Urine Appearance (Clear) Urine pH (5.0-8.0) Ur Specific [place] (1.001-1.035) Urine Protein (Negative) Urine Glucose (UA) (Negative) Urine Ketones (Negative) Urine Blood (Negative) Urine Nitrite (Negative) Urine Bilirubin (Negative) Urine Urobilinogen (<2.0) mg/dL Ur Leukocyte Esterase (Negative) Urine RBC (0-5) /hpf Urine WBC (0-5) /hpf Urine WBC Clumps (None) /hpf Ur Squamous Epith Cells (0-4) /hpf Urine Bacteria (None) /hpf Urine Mucus (None) /hpf 09/07/18 Range/Units 13:27 WBC (3.8-10.6) k/uL RBC (3.80-5.40) m/uL Hgb (11.4-16.0) gm/dL Hct (34.0-46.0) % MCV (80.0-100.0) fL MCH (25.0-35.0) pg MCHC (31.0-37.0) g/dL RDW (11.5-15.5) % Plt Count (150-450) k/uL Neutrophils % % Lymphocytes % % Monocytes % % Eosinophils % % Basophils % % Neutrophils # (1.3-7.7) k/uL Lymphocytes # (1.0-4.8) k/uL Monocytes # (0-1.0) k/uL Eosinophils # (0-0.7) k/uL Basophils # (0-0.2) k/uL Sodium (137-145) mmol/L Potassium (3.5-5.1) mmol/L Chloride (98-107) mmol/L Carbon Dioxide (22-30) mmol/L Anion Gap mmol/L BUN (7-17) mg/dL Creatinine (0.52-1.04) mg/dL Est GFR (CKD-EPI)AfAm (>60 ml/min/1.73 sqM) Est GFR (CKD-EPI)NonAf (>60 ml/min/1.73 sqM) Glucose (74-99) mg/dL Plasma Lactic Acid [place] (0.7-2.0) mmol/L Calcium (8.4-10.2) mg/dL Total Bilirubin (0.2-1.3) mg/dL AST (14-36) U/L ALT (9-52) U/L Alkaline Phosphatase (38-126) U/L Total Protein (6.3-8.2) g/dL Albumin (3.5-5.0) g/dL Amylase (30-110) U/L Lipase (23-300) U/L Urine Color Yellow Urine Appearance Cloudy H (Clear) Urine pH 6.0 (5.0-8.0) Ur Specific [place] 1.015 (1.001-1.035) Urine Protein 1+ H (Negative) Urine Glucose (UA) Negative (Negative) Urine Ketones Trace H (Negative) Urine Blood Small H (Negative) Urine Nitrite Positive H (Negative) Urine Bilirubin Negative (Negative) Urine Urobilinogen 2.0 (<2.0) mg/dL Ur Leukocyte Esterase Large H (Negative) Urine RBC 8 H (0-5) /hpf Urine WBC 178 H (0-5) /hpf Urine WBC Clumps Few H (None) /hpf Ur Squamous Epith Cells <1 (0-4) /hpf Urine Bacteria Many H (None) /hpf Urine Mucus Occasional H (None) /hpf Disposition Clinical Impression: Pyelonephritis, Nausea & vomiting, Right flank pain Disposition: ADMITTED IP TO THIS [facility] Condition: Fair Referrals: Jose Campos MD [Primary Care Provider] - 1-2 days
[2018-09-07 13:55] LABS: Basophils # (A) 0.1 k/uL (0-0.2); Basophils % (A) 1 %; Eosinophils % (A) 0 %; HCT 38.5 % (34.0-46.0); HGB 12.9 gm/dL (11.4-16.0); Lymphocytes # (A) 1.1 k/uL (1.0-4.8); Lymphocytes % (A) 11 %; MCH 29.9 pg (25.0-35.0); MCHC 33.5 g/dL (31.0-37.0); MCV 89.2 fL (80.0-100.0); Mean Platelet Volume 6.3; Monocytes # (A) 0.6 k/uL (0-1.0); Monocytes % (A) 6 %; Neutrophils # (A) 8.4 k/uL (1.3-7.7); Neutrophils % (A) 80 %; Platelet Count 276 k/uL (150-450); RBC 4.31 m/uL (3.80-5.40); RDW 12.9 % (11.5-15.5); WBC 10.5 k/uL (3.8-10.6)
--- NOTE | 2018-09-07 14:02 | US ---
EXAMINATION TYPE: US gallbladder DATE OF EXAM: 09/07/2018 COMPARISON: CT 10/18/2012 CLINICAL HISTORY: Pain. N, V, RUQ pain EXAM MEASUREMENTS: Liver Length: 12.5 cm Gallbladder Wall: 0.2 cm CBD: 0.8 cm Right Kidney: 9.7 x 4.2 x 4.0 cm Pt gassy and unable to tolerate probe pressure Pancreas: 3mm pancreatic duct visualized/ body wnl, head difficult to penetrate Liver: Visualized portions appeared wnl and there is somewhat poor penetration by the ultrasound be am, there is a coarse echotexture Gallbladder: Appeared wnl Evidence for sonographic Pan's sign: Yes CBD: wnl Right Kidney: No evidence of hydro, upper and lower pole gassed out and there is normal cortical med ullary differentiation There is no ascites. IMPRESSION: Exam is somewhat limited. There may be underlying hepatocellular disease, hepatic steatos is. Prominence of the pancreatic duct is likely a stable finding.
[2018-09-07 14:04] LABS: Albumin 3.7 g/dL (3.5-5.0); Calcium 9.5 mg/dL (8.4-10.2); Potassium 3.9 mmol/L (3.5-5.1); Total Bilirubin 0.7 mg/dL (0.2-1.3); Total Protein 6.5 g/dL (6.3-8.2)
--- NOTE | 2018-09-07 14:42 | CT ---
EXAMINATION TYPE: CT abdomen pelvis w con DATE OF EXAM: 09/07/2018 COMPARISON: None HISTORY: Pain in legs, back and abdomen CT DLP: 759.9 mGycm Automated exposure control for dose reduction was used. CONTRAST: CT scan of the abdomen pelvis is performed with IV Contrast, patient injected with 100 mL of Isovue 3 00. FINDINGS- LUNG BASES- No significant abnormality is appreciated. LIVER/GB- No gross abnormality is appreciated. PANCREAS-mild ill definition of the pancreatic head correlate with serum enzymes to exclude a mild pa ncreatitis.. SPLEEN- No gross abnormality is seen. ADRENALS- No gross abnormality is seen. KIDNEYS/BLADDER- no hydronephrosis. There are patchy areas of reduced enhancement involving the right kidney which is a nonspecific finding. This could be associated with a pyelonephritis. Renal artery infarction would be also the differential diagnosis. Correlate with urinalysis.. BOWEL-diverticulosis of the colon with no CT evidence of diverticulitis. Bowel gas pattern nonspecifi c with no obstruction. Small hiatal hernia noted. LYMPH NODES- No greater than 1cm abdominal or pelvic lymph nodes areappreciated. OSSEOUS STRUCTURES-hypertrophic and degenerative changes of the vertebral column. Grade 1 anterolisth esis L4 on L5.. OTHER- aorta of normal caliber with atherosclerotic changes. IMPRESSION- 1. Localized patchy areas of of reduced enhancement involving the right kidney. Most likely etiology would be a pyelonephritis. Correlate with urinalysis. A vasculitis or infarction would also be in the differential diagnosis. Neoplasm is felt less likely but should be followed to resolution. 2. Slight ill definition of the pancreatic head and uncinate process. Correlate with serum pancreatic enzymes to exclude a mild pancreatitis.
[2018-09-07] MEDS ORDERED: cefTRIAXone 2,000 MG in SODIUM CHLORIDE 0.9% 100 ML IVPB STA (14:46)
[2018-09-07] MEDS ORDERED: ACETAMINOPHEN TAB 325 MG TAB PO STA (14:46)
[2018-09-07 15:13] LABS: Appearance,Urine Cloudy (Clear); Bacteria,Urine Many /hpf; Bilirubin,Urine Negative (Negative); Blood,Urine Small (Negative); Color,Urine Yellow; Glucose,Urine (UA) Negative (Negative); Ketones,Urine Trace (Negative); Leukocyte Esterase,Urine Large (Negative); Mucus,Urine Occasional /hpf; Nitrite,Urine Positive (Negative); Protein,Urine 1+ (Negative); RBC,Urine 8 /hpf (0-5); Specific Gravity,Urine 1.015 (1.001-1.035); Squamous Epithelial Cell,Urine <1 /hpf (0-4); WBC,Urine 178 /hpf (0-5)
[2018-09-07] MEDS ORDERED: KETOROLAC 30 MG/ML 1 ML VIAL IVP PRN (15:26)
[2018-09-07] MEDS ORDERED: HYDROcodone/APAP 5-325MG 1 EACH TAB PO PRN (15:26)
[2018-09-07] MEDS ORDERED: MORPHINE SULFATE 4 MG/ML SYRINGE IV PRN (15:26)
[2018-09-07] MEDS ORDERED: NALOXONE 0.4 MG/ML 1 ML VIAL IV PRN (15:26)
[2018-09-07] MEDS: SODIUM CHLORIDE 0.9% 1,000 ML IV SCH (15:36)
[2018-09-07] MEDS ORDERED: KETOROLAC 30 MG/ML 1 ML VIAL IVP STA (15:39)
[2018-09-07] MEDS: ACETAMINOPHEN TAB 325 MG TAB PO PRN (21:18)
[2018-09-07] MEDS: LOSARTAN-HCTZ 50-12.5 MG 1 EACH TAB PO SCH (23:34)
[2018-09-08] MEDS: SODIUM CHLORIDE 0.9% 1,000 ML IV SCH ×3 (04:50→20:23)
[2018-09-08] MEDS ORDERED: LOSARTAN-HCTZ 50-12.5 MG 1 EACH TAB PO SCH (09:00)
[2018-09-08] MEDS: ATORVASTATIN 20 MG TAB PO SCH (09:04)
[2018-09-08] MEDS: LOSARTAN-HCTZ 50-12.5 MG 1 EACH TAB PO SCH (20:23)
--- NOTE | 2018-09-09 00:26 | P.HPIM ---
History of Present Illness H&P Date: 09/08/18 Chief Complaint: Abdominal pain History of present complaint: This is a pleasant 73-year-old patient who follows with Dr. Campos. Chronic stable medical conditions include asthma, hyperlipidemia, hypertension. Patient started with 3 days of increasing lower back pain becoming more severe and going down to the legs. She is feeling as about her cheeks are burning. With no local inflammation. [place] a bit weak overall. Having fever and chills. Urine was very dark in color. Also the pain as started in the right flank. Also some in the left flank. In the ER was found a very infected appearing urine. And was septic. Given IV fluids and IV antibiotics. Admitted with a diagnosis of pyelonephritis. Appetite had gone down. Review of systems: GEN.: Tired and exhausted EYES: None HEENT: None NECK: None RESPIRATORY: None CARDIOVASCULAR: None GASTROINTESTINAL: None GENITOURINARY: As above MUSCULOSKELETAL: None LYMPHATICS: None HEMATOLOGICAL: None PSYCHIATRY: None NEUROLOGICAL: None Past medical history: Asthma, hyperlipidemia, hypertension, TIA Social history: . Does not smoke or drink alcohol. Family history: Patient adopted Physical examination: VITAL SIGNS: 101.1, 106, 20, 129/67, 99% on room air GENERAL: Average built, sitting up, uncomfortable. EYES: Pupils equal. Conjunctiva normal. HEENT: External appearance of nose and ears normal, oral cavity grossly normal. NECK: JVD not raised; masses not palpable. HEART: First and second heart sounds are normal; no edema. LUNGS: Respiratory rate normal; clear to auscultation. ABDOMEN: Soft, tender in both the renal angles patient to the right side, liver spleen not palpable, no masses palpable. LYMPHATICS: No lymph nodes palpable in the axilla and neck. PSYCH: Alert and oriented x3; mood and affect normal. NEUROLOGICAL: Cranial nerves grossly intact; no facial asymmetry, power and sensation grossly intact. Investigations, reviewed in the clinical context White count 10.5 with a left shift, potassium 3.9, BNP 20, creatinine 0.87 Urine very infected appearing Computed tomography scan of the abdomen-patchy areas of reduced has been of the right kidney, colonic diverticulosis Assessment: -Acute right-sided pyelonephritis, causing aches sepsis on presentation -Intermittent asthma stable -Hyperlipidemia -Essential hypertension Plan: Patient's home medications are resumed. Patient is an IV ceftriaxone. Urine sent off for culture. Increase IV fluids. Care was discussed with the patient. Lovenox for DVT prophylaxis. Past Medical History Past Medical History: Asthma, CVA/TIA, Hyperlipidemia, Hypertension, Pneumonia Additional Past Medical History / Comment(s): tia 1999, "cyst on back of rt eye has appt in march w/ for poss sx" History of Any Multi-Drug Resistant Organisms: None Reported Past Surgical History: Appendectomy Past Anesthesia/Blood Transfusion Reactions: No Reported Reaction Additional Past Anesthesia/Blood Transfusion Reaction / Comment(s): pt lives with spouse, 1 dog in a single level home taht has 3 steps to enter.pt is independant, no outside services recieved and no medical equipment. pt drives. Past Psychological History: Anxiety Smoking Status: Never smoker Past Alcohol Use History: None Reported Past Drug Use History: None Reported - Past Family History Father History Unknown: Yes Additional Family Medical History / Comment(s): pt was adopted Mother History Unknown: Yes Additional Family Medical History / Comment(s): pt was adopted Medications and Allergies Home Medications Medication Instructions Recorded Confirmed Type Alendronate Sodium [Fosamax] 70 mg PO KING 01/02/17 09/07/18 History Aspirin [Adult Low Dose Aspirin EC] 81 mg PO DAILY 01/02/17 09/07/18 History Clopidogrel [Plavix] 75 mg PO DAILY 01/02/17 09/07/18 History Losartan/Hydrochlorothiazide 1 tab PO DAILY 01/02/17 09/07/18 History [Losartan-Hctz 50-12.5 mg Tab] Ibuprofen [Motrin Ib] 400 mg PO Q6H PRN 09/07/18 09/07/18 History Simvastatin 40 mg PO DAILY 09/07/18 09/07/18 History Allergies Allergy/AdvReac Type Severity Reaction Status Date / Time Sulfa (Sulfonamide Allergy Swelling Verified 09/07/18 13:21 Antibiotics) Physical Exam Vitals: Vital Signs Temp Pulse Pulse Resp BP BP Pulse Ox 09/08/18 07:00 98.3 F 95 14 106/71 95 09/07/18 23:00 98.3 F 94 16 115/70 98 09/07/18 19:41 97.7 F 90 16 104/59 97 09/07/18 19:00 98.5 F 89 18 119/61 97 09/07/18 17:52 98.7 F 94 18 134/71 96 09/07/18 15:36 100.2 F H 106 H 20 129/67 99 Results CBC & Chem 7: 09/07/18 13:27 09/07/18 13:27 Labs: Microbiology - Last 24 Hours (Table) 09/07/18 13:27 Urine Culture - Preliminary Urine,Voided Thrombosis Risk Factor Assmnt - Choose All That Apply Each Risk Factor Represents 2 Points: Age 61-74 years Thrombosis Risk Factor Assessment Total Risk Factor Score: 2 Thrombosis Risk Factor Assessment Level: Low Risk
[2018-09-09] MEDS: LACTATED RINGERS 1,000 ML IV SCH ×4 (06:50→20:33)
[2018-09-09] MEDS: ATORVASTATIN 20 MG TAB PO SCH (07:49)
[2018-09-09] MEDS: ENOXAPARIN 40 MG/0.4 ML SYRINGE SQ SCH (07:50)
[2018-09-09 08:39] LABS: Basophils % (A) 1 %; Eosinophils # (A) 0.2 k/uL (0-0.7); Eosinophils % (A) 3 %; HCT 37.2 % (34.0-46.0); Lymphocytes # (A) 1.5 k/uL (1.0-4.8); Lymphocytes % (A) 26 %; MCHC 32.2 g/dL (31.0-37.0); Mean Platelet Volume 5.9; Monocytes # (A) 0.3 k/uL (0-1.0); Monocytes % (A) 4 %; Neutrophils # (A) 3.6 k/uL (1.3-7.7); Neutrophils % (A) 64 %; Platelet Count 291 k/uL (150-450); RBC 4.13 m/uL (3.80-5.40); RDW 12.8 % (11.5-15.5); WBC 5.7 k/uL (3.8-10.6)
[2018-09-09 08:54] LABS: Potassium 3.9 mmol/L (3.5-5.1)
[2018-09-09] MEDS ORDERED: MORPHINE ORAL SOLN 10 MG/5 ML CUP PO PRN (12:11)
[2018-09-09] MEDS: LOSARTAN-HCTZ 50-12.5 MG 1 EACH TAB PO SCH (20:34)
--- NOTE | 2018-09-09 22:20 | PN ---
PROGRESS NOTE DATE OF SERVICE: September 09, 2018. PRESENTING COMPLAINT: Right-sided pyelonephritis. INTERVAL HISTORY: This patient presented with acute right-sided pyelonephritis with sepsis picture. Flank pain is better. Leg pain is better. Less burning in the buttock area, started to eat better. Fevers are coming down. REVIEW OF SYSTEMS: Done for constitutional, cardiovascular, GI, pulmonary; relevant findings as above. CURRENT MEDICATIONS: Reviewed that include IV ceftriaxone. PHYSICAL EXAMINATION: VITAL SIGNS: Temperature 98, pulse 92, respirations 12, blood pressure 133/66, pulse ox 98% on room air. GENERAL APPEARANCE: Sitting up, more comfortable. EYES: Pupils equal. Conjunctivae normal. HEENT: External appearance of nose and ears normal. Oral cavity normal. NECK: JVD not raised. Mass not palpable. RESPIRATORY: Effort normal. LUNGS are clear. CARDIOVASCULAR: 1st and 2nd sounds normal. No edema. ABDOMEN: Soft, nontender. Liver and spleen not palpable. Some tenderness in the right renal angle, better from yesterday. PSYCHIATRY: Alert and oriented x3. Mood and affect normal. INVESTIGATIONS: White count 5.7, hemoglobin 12.0. Potassium 3.9. Urine cultures growing E coli. ASSESSMENT: 1. Acute right-sided pyelonephritis causing sepsis on presentation with urine culture growing E coli. 2. Intermittent asthma, stable. 3. Hyperlipidemia. 4. Essential hypertension. PLAN: At this point, continue with IV fluids, other medications to continue. Patient is on IV ceftriaxone. Looking for hospital stay for another 24 hours. Care was discussed with the patient and at the bedside. MMODL / IJN: [id number] /
[2018-09-10 02:07] VITALS: RESP 16
[2018-09-10] MEDS: ACETAMINOPHEN TAB 325 MG TAB PO PRN (05:45)
[2018-09-10] MEDS: LACTATED RINGERS 1,000 ML IV SCH (05:51)
[2018-09-10 08:13] VITALS: BP 119/79; PULSE 81; TEMP 98.1
[2018-09-10 08:17] LABS: Calcium 9.8 mg/dL (8.4-10.2); Potassium 4.8 mmol/L (3.5-5.1)
[2018-09-10] MEDS: ATORVASTATIN 20 MG TAB PO SCH (09:03)
[2018-09-10] MEDS: ENOXAPARIN 40 MG/0.4 ML SYRINGE SQ SCH (09:05)
--- NOTE | 2018-09-11 08:46 | DS ---
DISCHARGE SUMMARY DATE OF ADMISSION: September 07, 2018. DATE OF DISCHARGE: September 10, 2018. FINAL DIAGNOSES: 1. Acute right-sided pyelonephritis causing sepsis on presentation with urine culture growing E coli. 2. Intermittent asthma, stable. 3. Hyperlipidemia. 4. Essential hypertension. HOSPITAL COURSE: This patient presented with right-sided pyelonephritis. Urine culture did grow E coli. The patient is rather tender in the flanks. Doing much better at the time of discharge. On examination, temperature 98.1, pulse 50, respirations 16, blood pressure 119/79. INVESTIGATIONS: White count normal. Urine cultures growing E coli. Blood cultures negative. Care was discussed with the patient. Questions were answered. DISCHARGE MEDICATIONS: 1. Fosamax 70 mg p.o. on Thursday. 2. Aspirin 81 mg a day. 3. Plavix 75 mg a day. 4. Losartan/hydrochlorothiazide 50/12.5 one tab p.o. daily. 5. Motrin 400 mg q.6h p.r.n. 6. Simvastatin 40 mg p.o. daily. 7. Ciprofloxacin 500 mg b.i.d. 14 tablets. FOLLOWUP: Follow up with Dr. Campos on 09/14/2018. Copy Dr. Campos. MMNITISHL / IJN: [id number] /
== END 2018-09-10 14:05 | disposition home or self-care (01) | DRG 872 ==
LOC: EC 12:43 → 4SSUR 15:26
PROVIDERS: ADMIT Hospitalist; ATTEND Hospitalist
DX: A41.51 Sepsis due to Escherichia coli [E. coli] (principal); N10 Acute pyelonephritis; J45.20 Mild intermittent asthma, uncomplicated; I10 Essential (primary) hypertension; F41.9 Anxiety disorder, unspecified; E78.5 Hyperlipidemia, unspecified; Z86.73 Personal history of transient ischemic attack (TIA), and cerebral infarction without residual deficits; Z87.01 Personal history of pneumonia (recurrent); Z79.02 Long term (current) use of antithrombotics/antiplatelets; Z79.82 Long term (current) use of aspirin; Z79.83 Long term (current) use of bisphosphonates; Z90.49 Acquired absence of other specified parts of digestive tract
CPT/HCPCS: 36415; 74177; 76705; 80048; 80053; 81001; 82150; 83605; 83690; 85025; 87040; 87077; 87086; 87186; 96361; 96365; 96375; 99285

== ENCOUNTER 2019-06-15 19:40 | Observation (INO) | payer MEDICARE, BC ==
[2019-06-15] MEDS ORDERED: SODIUM CHLORIDE 0.9% 1,000 ML IV STA (20:10)
[2019-06-15 20:17] LABS: Glucose,Whole Blood 95 mg/dL (75-99)
--- NOTE | 2019-06-15 20:39 | XR ---
EXAMINATION TYPE: XR chest 2V DATE OF EXAM: 06/15/2019 COMPARISON: 01/02/2017 HISTORY: Dizziness TECHNIQUE: Frontal and lateral views of the chest are obtained. FINDINGS: Heart is normal. Lungs are clear of infiltrate. There is no pleural effusion. There are no hilar masses. There are chest leads. Bony thorax is intact. IMPRESSION: No active cardiopulmonary disease. Normal heart. No change.
--- NOTE | 2019-06-15 20:40 | CT ---
EXAMINATION TYPE: CT brain wo con DATE OF EXAM: 06/15/2019 COMPARISON: 01/02/2017 HISTORY: Syncope. CT DLP: 1024.4 mGycm Automated exposure control for dose reduction was used. FINDINGS: There is cerebral cortical atrophy. There is no mass effect nor midline shift. There is no sign of in tracranial hemorrhage. Calvarium is intact. IMPRESSION: CEREBRAL ATROPHY APPROPRIATE FOR AGE. NO ACUTE INTRACRANIAL ABNORMALITY.
[2019-06-15 20:43] LABS: Basophils # (A) 0.1 k/uL (0-0.2); Basophils % (A) 1 %; Eosinophils % (A) 11 %; HCT 37.5 % (34.0-46.0); HGB 12.5 gm/dL (11.4-16.0); Lymphocytes % (A) 23 %; MCHC 33.4 g/dL (31.0-37.0); MCV 89.8 fL (80.0-100.0); Mean Platelet Volume 5.6; Monocytes # (A) 0.4 k/uL (0-1.0); Monocytes % (A) 5 %; Neutrophils # (A) 4.9 k/uL (1.3-7.7); Neutrophils % (A) 58 %; Platelet Count 310 k/uL (150-450); RBC 4.17 m/uL (3.80-5.40); WBC 8.5 k/uL (3.8-10.6)
[2019-06-15 20:50] LABS: Calcium 9.7 mg/dL (8.4-10.2); Potassium 4.1 mmol/L (3.5-5.1); Total Bilirubin 0.5 mg/dL (0.2-1.3); Total Protein 6.8 g/dL (6.3-8.2)
[2019-06-15 21:45] LABS: D-Dimer 0.52 mg/L FEU (<0.60); INR 0.9 (<1.2); Prothrombin Time 9.5 sec (9.0-12.0)
[2019-06-15 21:50] LABS: T4, Free (Free Thyroxine) 1.37 ng/dL (0.78-2.19)
--- NOTE | 2019-06-15 21:50 | ED ---
Dizziness HPI - General Chief Complaint: Syncope Stated Complaint: Syncope Time Seen by Provider: 06/15/19 19:50 Source: patient, family, EMS, RN notes reviewed Mode of arrival: EMS Limitations: no limitations - History of Present Illness Initial Comments: This is a 74-year-old female who states she was working with her daughter at home when she started feeling hot and she apparently went to drink water but does not recall she did or not she passed out without injury for about 45 minutes per family members. Her grandson was a fuel oil truck driver with her and said he noted she had a very thready pulses and thought they might actually have to do CPR on her. EMS was called she was transported to this facility for evaluation arrival she felt fine she was awake alert oriented 3 without any distress. She denies any chest pain palpitations fevers chills nausea vomiting she was apparently diaphoretic at the scene. No recent GI or urinary symptoms. She has had prior episodes of syncope she states it felt very similar but somewhat worse in her last episode. She did say she has some blurry vision she did have a right cataract removed and states she's been having some issues recently with her left eye. MD Complaint: other (Syncope) - Related Data Home Medications Medication Instructions Recorded Confirmed Aspirin [Adult Low Dose Aspirin EC] 81 mg PO DAILY 01/02/17 06/15/19 Clopidogrel [Plavix] 75 mg PO DAILY 01/02/17 06/15/19 Losartan/Hydrochlorothiazide 1 tab PO DAILY 01/02/17 06/15/19 [Losartan-Hctz 50-12.5 mg Tab] Simvastatin 40 mg PO DAILY 09/07/18 06/15/19 Naproxen Sodium [Aleve] 220 mg PO DAILY PRN 06/15/19 06/15/19 Allergies Allergy/AdvReac Type Severity Reaction Status Date / Time Sulfa (Sulfonamide Allergy Swelling Verified 06/15/19 20:17 Antibiotics) Review of Systems ROS Statement: Those systems with pertinent positive or pertinent negative responses have been documented in the HPI. ROS Other: All systems not noted in ROS Statement are negative. Past Medical History Past Medical History: Asthma, CVA/TIA, Hyperlipidemia, Hypertension, Pneumonia Additional Past Medical History / Comment(s): tia 1999, "cyst on back of rt eye has appt in march w/ for poss sx" History of Any Multi-Drug Resistant Organisms: None Reported Past Surgical History: Appendectomy Past Anesthesia/Blood Transfusion Reactions: No Reported Reaction Additional Past Anesthesia/Blood Transfusion Reaction / Comment(s): pt lives with spouse, 1 dog in a single level home taht has 3 steps to enter.pt is independant, no outside services recieved and no medical equipment. pt drives. Past Psychological History: Anxiety Smoking Status: Never smoker Past Alcohol Use History: None Reported Past Drug Use History: None Reported - Past Family History Father History Unknown: Yes Additional Family Medical History / Comment(s): pt was adopted Mother History Unknown: Yes Additional Family Medical History / Comment(s): pt was adopted General Exam - General Exam Comments Initial Comments: This is a well-developed well-nourished awake alert oriented 3 female Limitations: no limitations General appearance: alert, in no apparent distress Head exam: Present: atraumatic, normocephalic, normal inspection Eye exam: Present: normal appearance, PERRL, EOMI. Absent: scleral icterus, conjunctival injection, periorbital swelling ENT exam: Present: normal exam, mucous membranes moist Neck exam: Present: normal inspection, full ROM, other (t or bruits). Absent: tenderness, meningismus, lymphadenopathy Respiratory exam: Present: normal lung sounds bilaterally. Absent: respiratory distress, wheezes, rales, rhonchi, stridor Cardiovascular Exam: Present: regular rate, normal rhythm, normal heart sounds. Absent: systolic murmur, diastolic murmur, rubs, gallop, clicks GI/Abdominal exam: Present: soft, normal bowel sounds. Absent: distended, tenderness, guarding, rebound, rigid Extremities exam: Present: normal inspection, full ROM, normal capillary refill. Absent: tenderness, pedal edema, joint swelling, calf tenderness Back exam: Present: normal inspection Neurological exam: Present: alert, oriented X3, CN II-XII intact Psychiatric exam: Present: normal affect, normal mood Skin exam: Present: warm, dry, intact, normal color. Absent: rash Course Vital Signs 06/15/19 06/15/19 06/15/19 19:42 20:00 20:23 Temperature 98.0 F Pulse Rate 77 85 Pulse Rate [ 77 Left Sitting Pulse Oximetery ] Pulse Rate [ 87 Left Standing Pulse Oximetery ] Pulse Rate [ 82 Left Supine Pulse Oximetery ] Respiratory 18 20 16 Rate Blood Pressure 133/68 140/79 Blood Pressure 128/72 [Right Arm Sitting] Blood Pressure 126/62 [Right Arm Standing] Blood Pressure 127/61 [Right Arm Supine] O2 Sat by Pulse 98 99 99 Oximetry 06/15/19 06/15/19 20:30 21:00 Temperature Pulse Rate 68 71 Pulse Rate [ Left Sitting Pulse Oximetery ] Pulse Rate [ Left Standing Pulse Oximetery ] Pulse Rate [ Left Supine Pulse Oximetery ] Respiratory 18 18 Rate Blood Pressure 126/62 117/78 Blood Pressure [Right Arm Sitting] Blood Pressure [Right Arm Standing] Blood Pressure [Right Arm Supine] O2 Sat by Pulse 99 98 Oximetry EKG Findings - EKG Results: EKG: interpreted by ERMD (Normal sinus rhythm of 81 LA interval 156 QRS 78 QT since QTC 412/478 low-voltage QRS) Medical Decision Making - Medical Decision Making I did reevaluate patient several occasions she has no further symptoms due to the symptoms however that she did present with she will be admitted for evaluation of syncope. I did discuss the case with Dr. Santos who did come the emergency department to see the patient. - Lab Data Result diagrams: 06/15/19 20:03 06/15/19 20:03 Lab Results 06/15/19 06/15/19 06/15/19 Range/Units 20:03 20:03 20:03 WBC 8.5 (3.8-10.6) k/uL RBC 4.17 (3.80-5.40) m/uL Hgb 12.5 (11.4-16.0) gm/dL Hct 37.5 (34.0-46.0) % MCV 89.8 (80.0-100.0) fL MCH 30.0 (25.0-35.0) pg MCHC 33.4 (31.0-37.0) g/dL RDW 13.0 (11.5-15.5) % Plt Count 310 (150-450) k/uL Neutrophils % 58 % Lymphocytes % 23 % Monocytes % 5 % Eosinophils % 11 % Basophils % 1 % Neutrophils # 4.9 (1.3-7.7) k/uL Lymphocytes # 2.0 (1.0-4.8) k/uL Monocytes # 0.4 (0-1.0) k/uL Eosinophils # 1.0 H (0-0.7) k/uL Basophils # 0.1 (0-0.2) k/uL Sodium 136 L (137-145) mmol/L Potassium 4.1 (3.5-5.1) mmol/L Chloride 103 (98-107) mmol/L Carbon Dioxide 25 (22-30) mmol/L Anion Gap 8 mmol/L BUN 22 H (7-17) mg/dL Creatinine 0.91 (0.52-1.04) mg/dL Est GFR (CKD-EPI)AfAm 71 (>60 ml/min/1.73 sqM) Est GFR (CKD-EPI)NonAf 62 (>60 ml/min/1.73 sqM) Glucose 116 H (74-99) mg/dL POC Glucose (mg/dL) (75-99) mg/dL POC Glu Crnp ID Calcium 9.7 (8.4-10.2) mg/dL Magnesium 2.0 (1.6-2.3) mg/dL Total Bilirubin 0.5 (0.2-1.3) mg/dL AST 25 (14-36) U/L ALT 22 (9-52) U/L Alkaline Phosphatase 78 (38-126) U/L Creatine Kinase 34 (30-135) U/L Troponin I <0.012 (0.000-0.034) ng/mL Total Protein 6.8 (6.3-8.2) g/dL Albumin 4.0 (3.5-5.0) g/dL TSH 6.360 H (0.465-4.680) mIU/L Free T4 1.37 (0.78-2.19) ng/dL 06/15/19 Range/Units 20:13 WBC (3.8-10.6) k/uL RBC (3.80-5.40) m/uL Hgb (11.4-16.0) gm/dL Hct (34.0-46.0) % MCV (80.0-100.0) fL MCH (25.0-35.0) pg MCHC (31.0-37.0) g/dL RDW (11.5-15.5) % Plt Count (150-450) k/uL Neutrophils % % Lymphocytes % % Monocytes % % Eosinophils % % Basophils % % Neutrophils # (1.3-7.7) k/uL Lymphocytes # (1.0-4.8) k/uL Monocytes # (0-1.0) k/uL Eosinophils # (0-0.7) k/uL Basophils # (0-0.2) k/uL Sodium (137-145) mmol/L Potassium (3.5-5.1) mmol/L Chloride (98-107) mmol/L Carbon Dioxide (22-30) mmol/L Anion Gap mmol/L BUN (7-17) mg/dL Creatinine (0.52-1.04) mg/dL Est GFR (CKD-EPI)AfAm (>60 ml/min/1.73 sqM) Est GFR (CKD-EPI)NonAf (>60 ml/min/1.73 sqM) Glucose (74-99) mg/dL POC Glucose (mg/dL) 95 (75-99) mg/dL POC Glu Crnp [place] Calcium (8.4-10.2) mg/dL Magnesium (1.6-2.3) mg/dL Total Bilirubin (0.2-1.3) mg/dL AST (14-36) U/L ALT (9-52) U/L Alkaline Phosphatase (38-126) U/L Creatine Kinase (30-135) U/L Troponin I (0.000-0.034) ng/mL Total Protein (6.3-8.2) g/dL Albumin (3.5-5.0) g/dL TSH (0.465-4.680) mIU/L Free T4 (0.78-2.19) ng/dL - Radiology Data Radiology results: report reviewed (I did review the imaging and report no acute findings.), image reviewed Disposition Clinical Impression: Syncope Disposition: ADMITTED IP TO THIS [facility] Condition: Stable Referrals: Jose Campos MD [Primary Care Provider] - 1-2 days
[2019-06-15 21:53] LABS: Partial Thromboplastin Time 21.3 sec (22.0-30.0)
[2019-06-15] MEDS ORDERED: NALOXONE 0.4 MG/ML 1 ML VIAL IV PRN (21:53)
[2019-06-15 21:59] LABS: Appearance,Urine Clear (Clear); Bilirubin,Urine Negative (Negative); Blood,Urine Negative (Negative); Color,Urine Yellow; Glucose,Urine (UA) Negative (Negative); Ketones,Urine Trace (Negative); Leukocyte Esterase,Urine Small (Negative); Mucus,Urine Rare /hpf; Nitrite,Urine Negative (Negative); PH, Urine 5.5 (5.0-8.0); Protein,Urine Negative (Negative); RBC,Urine 1 /hpf (0-5); Specific Gravity,Urine 1.016 (1.001-1.035); Squamous Epithelial Cell,Urine 2 /hpf (0-4); Urobilinogen,Urine <2.0 mg/dL (<2.0); WBC,Urine 1 /hpf (0-5)
[2019-06-15] MEDS ORDERED: NAPROXEN 250 MG TAB PO PRN (22:30)
--- NOTE | 2019-06-15 23:20 | HP ---
HISTORY AND PHYSICAL CHIEF COMPLAINT: Syncope. HISTORY OF PRESENT ILLNESS: This 74-year-old woman with a past medical history of multiple medical problems, including asthma, CVA, TIA, hypertension, hyperlipidemia, history of pneumonia, being followed by Dr. Jose Campos in the outpatient setting, was complaining of syncope. The patient was in the basement drinking a glass of water. The patient reported feeling hot and subsequently patient sat in a chair after drinking the glass of water, and subsequently passed out for 4 or 5 minutes and the patient came out after that. Family took her to the hospital and she was admitted for further evaluation and treatment. Interestingly, the patient had a similar episode 4 years ago and apparently patient also had a child monitor in place during that time. Details are not available. There is no history of chest pain or palpitations. No history of any headache. No history of seizures. No history of any hematochezia or melena at this time. PAST HISTORY: 1. Asthma. 2. CVA, TIA. 3. Hypertension. 4. Hyperlipidemia. 5. History pneumonia. HOME MEDICATIONS: 1. Aleve 220 mg daily p.r.n. 2. Simvastatin 40 mg daily. 3. Losartan/hydrochlorothiazide 1 tablet p.o. daily. 4. Plavix 75 mg p.o. daily. 5. Ecotrin 81 mg daily. ALLERGIES: SULFA. FAMILY HISTORY: The patient was adopted. SOCIAL HISTORY: No history of smoking. No history of alcohol intake. REVIEW OF SYSTEMS: ENT: No diminished hearing. No diminished vision. CARDIOVASCULAR SYSTEM: No angina, palpitations. RESPIRATORY SYSTEM: No cough, hemoptysis. GI: No nausea, vomiting. : No dysuria or retention. NERVOUS SYSTEM: As mentioned earlier. ALLERGY/IMMUNOLOGY: No asthma, hayfever. MUSCULOSKELETAL: As mentioned earlier. HEMATOLOGY/ONCOLOGY: No history of anemia. ENDOCRINE: No history of diabetes, hypothyroidism. CONSTITUTIONAL: As mentioned earlier. DERMATOLOGY: Negative. RHEUMATOLOGY: Negative. PSYCHIATRY: As mentioned earlier. PHYSICAL EXAMINATION: Patient alert and oriented x3. Pulse is 77, blood pressure 128/70, respiration 22, temperature 98 degrees, pulse ox 99% on room air. No orthostatic changes. HEENT: Conjunctivae normal. NECK: No jugular venous distention. CARDIOVASCULAR SYSTEM: S1, S2 muffled. No S3. No S4. RESPIRATORY SYSTEM: Breath sounds diminished at the bases. No rhonchi. No crackles. ABDOMEN: Soft, non-tender. No mass palpable. LEGS: No edema. No swelling. NERVOUS SYSTEM: Higher functions as mentioned earlier. Moves all 4 limbs. No focal motor or sensory deficit. LYMPHATICS: No lymph node palpable in neck, axillae or groin. SKIN: No ulcer, rash, bleeding. JOINTS: No active deforming arthropathy. LABS: Labs at this time show CBC within normal limits. Hemoglobin is 12.5. Sodium 136. Glucose 116. TSH is 6.360. ASSESSMENT: 1. Syncope for evaluation; rule out cardiac arrhythmia, vasovagal. 2. Hyponatremia, mild. 3. History of urinary tract infection. 4. History of transient ischemic attack. 5. Hypertension. 6. Hyperlipidemia. 7. History of pneumonia. RECOMMENDATIONS AND DISCUSSION: In this 74-year-old woman who presented with multiple medical issues, at this time I recommend to continue current medications, continue symptomatic treatment. Orthostatic vitals. Neurology and cardiology evaluations. Neurovascular workup. Otherwise, resume the home medications. Prognosis guarded because of multiple complex medical issues. Further recommendations to follow. A copy of this dictation is being forwarded to Dr. Jose Campos, who is the primary physician. MMODL / EDDIEN: [id number] /
--- NOTE | 2019-06-15 23:25 | US ---
EXAMINATION TYPE: US carotid duplex BILAT DATE OF EXAM: 06/15/2019 COMPARISON: NONE CLINICAL HISTORY: stroke. Stroke per order. TIA years ago. Hyperlipidemia. HTN. Syncopal episode at 5 pm today. EXAM MEASUREMENTS: RIGHT: Peak Systolic Velocity (PSV) cm/sec ----- Right CCA: 92.7 ----- Right ICA: 123.3 ----- Right ECA: 145.0 ICA/CCA ratio: 1.3 RIGHT: End Diastole cm/sec ----- Right CCA: 20.2 ----- Right ICA: 48.5 ----- Right ECA: 18.9 LEFT: Peak Systolic Velocity (PSV) cm/sec ----- Left CCA: 75.4 ----- Left ICA: 202.4 ----- Left ECA: 154.9 ICA/CCA ratio: 2.7 LEFT: End Diastole cm/sec ----- Left CCA: 18.2 ----- Left ICA: 53.7 ----- Left ECA: 9.1 VERTEBRALS (direction of flow): Right Vertebral: Antegrade Left Vertebral: Antegrade Rhythm: Normal Hyperechoic plaque noted within bilateral carotid bifurcations, left greater than right. Elevated dinesh ocities obtained within the right ECA, proximal and mid left ICA, left bulb, and left ECA. IMPRESSION: Elevated velocity in the left internal carotid artery consistent with 50-70% stenosis of the left internal carotid artery. There is close to 50% stenosis right internal carotid artery. Antegrade flow in the vertebral arteries. Criteria for Assigning % of Stenosis / Diameter reduction (Estimation based on the indirect measurements of the internal carotid artery velocities (ICA PSV). 1. Normal (no stenosis)=ICA PSV < 125 cm/s: ratio < 2.0: ICA EDV<40 cm/s. 2. Less than 50% stenosis=ICA PSV < 125 cm/s: ratio < 2.0: ICA EDV<40 cm/s. 3. 50 to 69% stenosis=ICA PSV of 125 to 230 cm/s: ration 2.0 ? 4.0: ICA EDV 40-100 cm/s. 4. Greater than 70% stenosis to near occlusion= ICA PSV > 230 cm/s: ratio > 4.0: ICA EDV > 100 cm/s. 5. Near occlusion= ICA PSV velocities may be low or undetectable: variable ratio and ICA EDV. 6. Total occlusion=unable to detect flow.
[2019-06-16] MEDS: SODIUM CHLORIDE 0.9% 1,000 ML IV SCH ×2 (00:20→23:38)
[2019-06-16 07:33] LABS: Basophils # (A) 0.1 k/uL (0-0.2); Basophils % (A) 1 %; Eosinophils # (A) 1.2 k/uL (0-0.7); Eosinophils % (A) 14 %; HCT 35.3 % (34.0-46.0); Lymphocytes # (A) 2.4 k/uL (1.0-4.8); Lymphocytes % (A) 27 %; MCHC 33.9 g/dL (31.0-37.0); MCV 88.4 fL (80.0-100.0); Monocytes # (A) 0.4 k/uL (0-1.0); Monocytes % (A) 4 %; Neutrophils # (A) 4.4 k/uL (1.3-7.7); Neutrophils % (A) 51 %; Platelet Count 303 k/uL (150-450); RBC 3.99 m/uL (3.80-5.40); WBC 8.7 k/uL (3.8-10.6)
[2019-06-16 07:35] LABS: Calcium 9.4 mg/dL (8.4-10.2); Potassium 3.9 mmol/L (3.5-5.1)
[2019-06-16] MEDS: HEPARIN SODIUM,PORCINE 5,000 UNIT/ML 1 ML VIAL SQ SCH ×2 (08:58→20:00)
[2019-06-16] MEDS: LOSARTAN-HCTZ 50-12.5 MG 1 EACH TAB PO SCH (08:58)
[2019-06-16] MEDS: CLOPIDOGREL 75 MG TAB PO SCH (08:58)
[2019-06-16] MEDS: ASPIRIN 81 MG PO SCH (08:58)
[2019-06-16] MEDS: ATORVASTATIN 20 MG TAB PO SCH (08:58)
--- NOTE | 2019-06-16 09:33 | CT ---
EXAMINATION TYPE: CT angio head neck DATE OF EXAM: 06/16/2019 COMPARISON: None HISTORY: Carotid stenosis, syncope CT DLP: 356.9 mGycm CONTRAST: Performed with IV Contrast, patient injected with 58 mL of Isovue 370. Combination Contrast CTA cervical carotids and [place] CTA cervical carotids with 3-D recons truction Contrast CTA of the cervical carotids was performed 3-D reconstruction imaging obtained at a separate workstation. Right carotid system: Mild plaque is seen of the right common carotid artery. There is mild plaque a lso noted at the carotid bulb and proximal ICA. Estimated diameter reduction is noted to be 40%. EC A is patent. Right vertebral artery appears unremarkable. Left carotid system: Mild plaque is seen of the left common carotid artery. There is severe focal ca lcific plaque noted at the origin of the left ICA resulting in greater than 90% stenosis. ECA is olvera nt with narrowing estimated at 50%. Left vertebral artery appears unremarkable. IMPRESSION: 1. No significant diameter reduction to account for the patient's symptoms. CTA [place] with 3-D reconstruction Contrast CTA of the [place] was performed 3-D reconstruction imaging obtained at a separate workstation. Vertebrobasilar system as well as intracranial portions of the internal carotid arteries and their [place] tributaries are patent. I do not see evidence for sizable aneurysm or vascular malformation. Pl ease note MRI provides greater sensitivity and specificity. Visualized brain appears grossly unremar kable. IMPRESSION: 1. There is severe focal calcific plaque noted at the origin of the left ICA resulting in greater maryanne n 90% stenosis.
--- NOTE | 2019-06-16 11:00 | ECHOF ---
Referral Reason:Stroke MEASUREMENTS -------- HEIGHT: 160.0 cm WEIGHT: 68.0 kg BP: 104/64 RVIDd: 3.5 cm (< 3.3) IVSd: 0.7 cm (0.6 - 1.1) LVIDd: 3.9 cm (3.9 - 5.3) LVPWd: 1.0 cm (0.6 - 1.1) IVSs: 0.9 cm LVIDs: 2.8 cm LVPWs: 1.3 cm LAESV Index (A-L): 25.15 ml/m Ao Diam: 2.5 cm (2.0 - 3.7) AV Cusp: 1.2 cm (1.5 - 2.6) LA Diam: 3.6 cm (2.7 - 3.8) MV EXCURSION: 15.965 mm (> 18.000) MV EF SLOPE: 113 mm/s (70 - 150) EPSS: 0.4 cm MV E George: 0.52 m/s MV DecT: 234 ms MV A George: 0.97 m/s MV E/A Ratio: 0.53 RAP: 5.00 mmHg RVSP: 13.59 mmHg FINDINGS -------- Sinus rhythm. This was a technically adequate study. LV size, wall thickness and systolic function are normal, with an EF greater than 55%. The left vivek tricular size is normal. The right ventricle is normal in size. The left atrial size is normal. The right atrial size is normal. The aortic valve is trileaflet, and appears structurally normal. No aortic stenosis or regurgitation. Mild mitral regurgitation is present. Mild tricuspid regurgitation present. Right ventricular systolic pressure is normal at < 35 mmHg. There is no evidence of pulmonary hypertension. There is no pulmonic regurgitation present. The aortic root size is normal. Echo free space may represent effusion or a pericardial fat pad. CONCLUSIONS -------- 1. Sinus rhythm. 2. This was a technically adequate study. 3. LV size, wall thickness and systolic function are normal, with an EF greater than 55%. 4. The left ventricular size is normal. 5. The right ventricle is normal in size. 6. The left atrial size is normal. 7. The right atrial size is normal. 8. The aortic valve is trileaflet, and appears structurally normal. No aortic stenosis or regurgitati on. 9. Mild mitral regurgitation is present. 10. Mild tricuspid regurgitation present. 11. Right ventricular systolic pressure is normal at < 35 mmHg. 12. There is no evidence of pulmonary hypertension. 13. There is no pulmonic regurgitation present. 14. The aortic root size is normal. 15. Echo free space may represent effusion or a pericardial fat pad. SPEECH LANGUAGE THERAPIST: Susanna Heredia RDCS
--- NOTE | 2019-06-16 11:17 | P.CNNES ---
History of Present Illness Consult date: 06/16/19 Reason for Consult: Dizziness Chief complaint: Passed out for about 45 minutes History of Present Illness: HISTORY OF PRESENT ILLNESS: Thank you for allowing me to evaluate Ms. Mamie Cameron. Ms. Cameron is a 74-year-old woman with past medical history of asthma, TIA in 1999, hyperlipidemia, hypertension, anxiety, presented to [facility] for a syncopal episode. Patient states that she was packaging deer meat that her had recent hunted with her daughter in her daughter's house basement when she suddenly started feeling hot. She went to grab water, but she didn't feel right, so she sat down on a chair and patient does not remember anything since. She woke up when the paramedics came to her daughter's house, and when she woke up, she was not confused. Denies heart palpitations. Patient was standing up when she started feeling hot. Patient denies urinary/bowel incontine nce or tongue biting. Family did not tell patient about any abnormal movements she had. Patient denies any recent sickness, headache, nausea, vomiting, weakness or numbness/tingling. patient has had eye procedures done last year, and she noticed at the [facility] about 2 weeks ago that her vision had gotten worse. She has an appointment with an engraved roller inspector in June. Patient reports having had similar episode about 3 years ago, during summer time, at a parade, when she suddenly started feeling as though there were clouds blowing into her face. Patient sat down and passed out. At that time, patient was not taken to a hospital. Patient does not quite remember the TIA episode well, but she reports having had numbness on one side of her face and ever since then, patient had been on ASA and plavix. Patient denies any vascular procedures. PAST MEDICAL HISTORY: Asthma, TIA in 1999, hyperlipidemia, hypertension PAST SURGICAL HISTORY: Appendectomy HOME MEDICATIONS: Losartan, Plavix, aspirin, simvastatin, naproxen ALLERGIES: Sulfa drugs SOCIAL HISTORY: Patient lives with spouse. Patient is independent. Number smoker. FAMILY HISTORY: Patient was adopted REVIEW OF SYSTEMS: The 14 systems are reviewed and no additional points are identified compared to the review of systems documented history and physical PHYSICAL EXAMINATION: VITAL SIGNS: T 98.2 HR 81 RR 18 BP 117/73 O2 sat 98% on RA GEN.: NAD, pleasant and cooperative HEENT: NCAT, sclera without icterus NECK: Supple SKIN AND EXTREMITIES: Warm to touch, no edema NEURO: MENTAL STATUS: Patient alert and oriented to self, place, time. Able to name the current president. Speech fluent, able to name and repeat, following all commands readily. No right and left disorientation, extinction to double simultaneous stimulation, finger agnosia, neglect. CRANIAL NERVES II THROUGH XII: II: Pupils are equal and reactive to light symmetrically. No afferent pupillary defect. Visual hamilton are intact. III, IV, : No ptosis. Extraocular movements full. No nystagmus. V: Facial sensation intact from V1-3. VII. No clear facial asymmetry. VIII: Hearing intact to finger rub bilaterally. IX, X: Symmetric palate elevation. XI: Shoulder shrug intact. XII: Tongue midline without fasciculation or atrophy. MOTOR: Normal bulk/tone. No pronator drift or tremor. Strength is 5/5 throughout all 4 extremities. SENSORY: Intact to light touch, temperature, pinprick in all 4 extremities. Romberg is negative. REFLEXES: 2+ throughout. Toes are downgoing. COORDINATION: Finger to nose and heel to santana intact. No dysmetria. Rapid alternating movements with good speed and accuracy. GAIT: Narrow-based and stable. Able to toe/heel/tandem walk DIAGNOSTIC TESTING: LABORATORY: WBC 8.7 hemoglobin 12.0 platelet 303 PT 9.5 INR 0.9 sodium 140 potassium 3.9 chloride 108 bicarb 24 BUN 18 creatinine 0.85 glucose 97 AST 25 ALT 22 alk phos 78 troponin <0.012 TSH 6.36 free T4 1 0.37 urinalysis small leukesterase IMAGING: CT head without contrast 06/15/2019: Cervical atrophy appropriate for age. No acute intracranial abnormality. ? Old right basal ganglia infarct CTA head and neck without without contrast 06/16/2019: ASSESSMENT: 74-year-old woman with past medical history of asthma, TIA in 1999, hyperlipidemia, hypertension, anxiety, presented to [facility] for a syncopal episode. Description of episode points more towards vasovagal episode. Patient with no neuro deficits. Less likely seizure/stroke as etiology of her syncope. RECOMMENDATIONS: 1. Routine EEG 2. After routine EEG performed, okay for patient to be discharged home 3. Patient on both ASA and plavix, which patient states was started in 1999 after her episode of TIA and she's been on both ever since. Patient does not need to be on dual antiplatelet therapy at this time. Continue with ASA 81mg qday only 4. Patient should follow up with PCP within 1-2 weeks of discharge 5. Neurology will sign off at this time. Please feel free to contact Neurology again if with additional questions or concerns. Past Medical History Past Medical History: Asthma, CVA/TIA, Hyperlipidemia, Hypertension, Pneumonia Additional Past Medical History / Comment(s): tia 1999, cyst on back of rt eye with surgical removal History of Any Multi-Drug Resistant Organisms: None Reported Past Surgical History: Appendectomy Past Anesthesia/Blood Transfusion Reactions: No Reported Reaction Additional Past Anesthesia/Blood Transfusion Reaction / Comment(s): pt lives with spouse, 1 dog in a single level home taht has 3 steps to enter.pt is independant, no outside services recieved and no medical equipment. pt drives. Past Psychological History: Anxiety Smoking Status: Never smoker Past Alcohol Use History: None Reported Past Drug Use History: None Reported - Past Family History Father History Unknown: Yes Additional Family Medical History / Comment(s): pt was adopted Mother History Unknown: Yes Additional Family Medical History / Comment(s): pt was adopted Medications and Allergies Home Medications Medication Instructions Recorded Confirmed Type Aspirin [Adult Low Dose Aspirin EC] 81 mg PO DAILY 01/02/17 06/15/19 History Clopidogrel [Plavix] 75 mg PO DAILY 01/02/17 06/15/19 History Losartan/Hydrochlorothiazide 1 tab PO DAILY 01/02/17 06/15/19 History [Losartan-Hctz 50-12.5 mg Tab] Simvastatin 40 mg PO DAILY 09/07/18 06/15/19 History Naproxen Sodium [Aleve] 220 mg PO DAILY PRN 06/15/19 06/15/19 History Allergies Allergy/AdvReac Type Severity Reaction Status Date / Time Sulfa (Sulfonamide Allergy Swelling Verified 06/15/19 23:49 Antibiotics) Physical Examination - Vital Signs Vital Signs: Vital Signs Temp Pulse Pulse Pulse Pulse Pulse Resp 06/16/19 07:58 98.2 F 81 18 06/16/19 04:00 97.5 F L 98 18 06/15/19 23:10 97.4 F L 66 18 06/15/19 22:55 98.1 F 68 16 06/15/19 22:00 80 16 06/15/19 21:00 71 18 06/15/19 20:30 68 18 06/15/19 20:23 77 87 82 16 06/15/19 20:00 85 20 06/15/19 19:42 98.0 F 77 18 BP BP BP BP BP BP Pulse Ox 06/16/19 07:58 117/73 98 06/16/19 04:00 104/64 96 06/15/19 23:10 140/60 97 06/15/19 22:55 117/53 99 06/15/19 22:00 122/83 98 06/15/19 21:00 117/78 98 06/15/19 20:30 126/62 99 06/15/19 20:23 128/72 126/62 127/61 99 06/15/19 20:00 140/79 99 06/15/19 19:42 133/68 98 Intake and Output 06/15/19 06/16/19 06/16/19 22:59 06:59 14:59 Other: Voiding Method Toilet # Voids 1 Weight 68.039 kg Results - Laboratory Findings CBC and BMP: 06/16/19 06:58 06/16/19 06:58 Abnormal Lab Findings: Abnormal Labs 06/15/19 06/15/19 06/15/19 20:03 20:03 20:03 Eosinophils # 1.0 H APTT 21.3 L Sodium 136 L Chloride BUN 22 H Glucose 116 H TSH 6.360 H Urine Ketones Ur Leukocyte Esterase Urine Mucus 06/15/19 06/16/19 06/16/19 21:44 06:58 06:58 Eosinophils # 1.2 H APTT Sodium Chloride 108 H BUN 18 H Glucose TSH Urine Ketones Trace H Ur Leukocyte Esterase Small H Urine Mucus Rare H
--- NOTE | 2019-06-16 15:22 | PN ---
PROGRESS NOTE DATE OF SERVICE: June 16, 2019. This 74-year-old woman who was admitted with syncope also being evaluated for cardiac arrhythmias. The CT angio showed 90% stenosis internal carotid artery origin, plaque was demonstrated. Neurology is following the patient closely. Possibility of vasovagal syncope is also considered. No chest pain. No palpitations. No fever. Cardiology recommending cardiac monitoring. EXAM: Alert and oriented times three. Pulse 75, blood pressure 112/71, respiration 18, temperature 98.1, pulse ox 98% on room air. HEENT: Conjunctivae normal. NECK: No jugular venous distention. CARDIOVASCULAR: S1, S2 muffled. RESPIRATORY SYSTEM: Breath sounds diminished at the bases. No rhonchi. No crackles. ABDOMEN is soft, nontender. LEGS no edema. No swelling. NERVOUS SYSTEM: No focal deficits. LABORATORY DATA: CBC within normal limits. is 1.2 and sodium is 140. ASSESSMENT: 1. Syncope for evaluation, rule out cardiac arrhythmia or vasovagal. 2. Left internal carotid stenosis more than 90% with plaques possibly. 3. Hyponatremia, mild. 4. History of urinary tract infection. 5. History of transient ischemic attack. 6. Hypertension. 7. Hyperlipidemia. 8. History of pneumonia. RECOMMENDATIONS AND DISCUSSION: Recommend to continue current medications, monitoring, symptomatic treatment. Vascular surgery evaluation by Dr. Hernandez. Otherwise continue with cardiac monitoring. Neurology input appreciated. Guarded prognosis because of multiple complex medical issues. Further recommendations to follow. MMODL / IJN: [id number] / MTDD
--- NOTE | 2019-06-16 17:10 | CONS ---
CONSULTATION DATE OF SERVICE: This is a 74-year-old lady with a diagnosis of hypertension, hyperlipidemia, a remote history of TIA, and she is on aspirin and Plavix for this reason and sees Dr. Leos from a neurology standpoint and Dr. Jose Campos in [place] for her primary care needs. She came into the hospital after an episode of what seems to be a vasovagal syncope. She was in the basement working with her daughter. She was trying to do some packing of meat. She felt it was very hot and told her daughter that it was hot, took her sweatshirt off, and she wanted to have a drink of water. She walked over to the sink, well beyond the water, and the next thing she remembers is her son-in-law picking her up; he is a tank stave assembler, and he felt the pulse was very thready. However, she was brought to the emergency room. She was in a normal sinus rhythm, hemodynamically stable, no further issues. She did not lose control of bladder or bowel. The circumstances of feeling hot and uncomfortable prior to this episode strongly suggest a vasovagal phenomenon. About 3 years ago while she was watching a parade on a hot day a similar episode happened and EMS came in and saw her, and she went and sat down before the episode occurred. Patient tends to have significant vasovagal tendencies. I have advised her regarding adequate hydration, and the minute she senses such an episode to lie down or sit down and keep her feet up so that the episode will pass without incident. Workup here included troponins which are normal. EKGs were unremarkable. Rhythm strips were reviewed. There is no evidence of any tachy- or bradyarrhythmia. She had a carotid Doppler which reveals moderate disease on the left internal carotid artery with elevated velocities in the range of 50% to 70%, and on the right side there is no significant lesion. Vertebral flow is antegrade direction bilaterally. PAST MEDICAL HISTORY: 1. Hypertension. 2. Hyperlipidemia. 3. Remote history of TIA. MEDICATIONS: Medications at home include: 1. Simvastatin 40 mg daily. 2. Aleve. 3. Losartan/HCTZ 50/12.5. 4. Plavix 75 mg daily. 5. Aspirin 81 mg daily. ALLERGIES: SULFA. PAST SURGICAL HISTORY: She is status post appendectomy. PHYSICAL EXAMINATION: Blood pressure was 118/70. Pulse rate was about 80 per minute. There were no orthostatic changes. HEENT unremarkable. Fundus was not examined by me. Neck is supple. No JVD. I do not hear a carotid bruit. There is no thyromegaly. Heart exam reveals S1, S2 heard normally. No rub, murmur or gallop. Lungs are clear. Abdomen is soft, nontender. Lower extremities reveal normal pulses. No edema. Central nervous system is normal. EKG revealed sinus mechanism, no acute changes. IMPRESSION: 1. Probable vasovagal syncope. 2. Moderate left-sided carotid disease in a patient with a known prior transient ischemic attack, for which she is on aspirin and Plavix. 3. Hypertension. 4. Hyperlipidemia. 5. No evidence of any coronary artery disease and negative stress test more than 6 years ago. RECOMMENDATIONS: I am recommending that we will perform an echocardiogram to assess for any structural heart disease. Continue monitoring until later in the day. We will recommend a Holter prior to discharge and I will see her in the office on Thursday. This lady plans on travel sometime in the middle of next week, and before that we will try to complete the 24-hour Holter workup as well and look at the Holter monitor. Given her carotid disease and previous history of TIA, I am recommending a CT angio to rule out any significant obstruction, which seems less likely based on the Doppler study. I discussed my thoughts in detail with the patient. Thank you very much for the consult. MMODL / IJN: [id number] /
--- NOTE | 2019-06-16 23:25 | EEG ---
ELECTROENCEPHALOGRAM REPORT DATE OF PROCEDURE: 06/16/2019 ELECTROENCEPHALOGRAM (EEG) REPORT: TECHNIQUE: A routine 18-channel EEG was performed with video using the 10/20 international electrode placement system. HISTORY: Syncopal episode. Other medical history includes asthma, TIA, hyperlipidemia, hypertension. CURRENT MEDICATIONS: 1. Naproxen. 2. Hydrochlorothiazide. 3. Plavix. 4. Lipitor. 5. Aspirin. STUDY DURATION: 23 minutes. FINDINGS: BACKGROUND: The background activity consisted of 7 to 8 Hz rhythmic waveforms symmetrically distributed through both posterior quadrants. ACTIVATION: Hyperventilation: Not performed. Photic stimulation: Mild symmetric driving seen. Sleep: Drowsy and stage I. ABNORMALITIES: None. IMPRESSION: Mildly abnormal EEG. Background frequencies did not exceed 8 Hz. These findings indicate mild diffuse cerebral dysfunction. No seizures were recorded. No epileptiform activity was present. Please note that one channel of this EEG was dedicated to EKG. It demonstrated a sinus rhythm. MMODL / IJN: [id number] /
[2019-06-17 07:15] VITALS: RESP 18
[2019-06-17 07:36] LABS: Basophils # (A) 0.1 k/uL (0-0.2); Basophils % (A) 1 %; Eosinophils % (A) 17 %; HCT 35.7 % (34.0-46.0); HGB 11.9 gm/dL (11.4-16.0); Lymphocytes # (A) 1.9 k/uL (1.0-4.8); Lymphocytes % (A) 32 %; MCH 30.2 pg (25.0-35.0); MCHC 33.4 g/dL (31.0-37.0); MCV 90.5 fL (80.0-100.0); Mean Platelet Volume 6.1; Monocytes # (A) 0.3 k/uL (0-1.0); Monocytes % (A) 4 %; Neutrophils # (A) 2.6 k/uL (1.3-7.7); Neutrophils % (A) 43 %; Platelet Count 284 k/uL (150-450); RBC 3.95 m/uL (3.80-5.40); RDW 13.1 % (11.5-15.5)
[2019-06-17 07:46] LABS: Calcium 9.3 mg/dL (8.4-10.2); Potassium 4.2 mmol/L (3.5-5.1)
[2019-06-17] MEDS: LOSARTAN-HCTZ 50-12.5 MG 1 EACH TAB PO SCH (08:24)
[2019-06-17] MEDS: HEPARIN SODIUM,PORCINE 5,000 UNIT/ML 1 ML VIAL SQ SCH (08:24)
[2019-06-17] MEDS: CLOPIDOGREL 75 MG TAB PO SCH (08:24)
[2019-06-17] MEDS: ATORVASTATIN 20 MG TAB PO SCH (08:24)
[2019-06-17] MEDS: ASPIRIN 81 MG PO SCH (08:24)
--- NOTE | 2019-06-17 10:07 | P.PN ---
Subjective This is a pleasant 74-year-old female past medical history significant for hypertension, dyslipidemia, TIA and is being observed after having what is thought to be a vasovagal episode. She underwent a CT angio of the head and neck yesterday revealing a nearly 90% calcified plaque of the left ICA. Dr. Pierce has been consulted to see the patient. She follows with him regularly. She is seen and examined sitting up in bed in no acute distress. She has had not further symptoms of dizziness or syncope. Blood pressures reviewed, orthostatics negative. This morning was 120/69 with heart rate of 82. Telemetry tracings negative for arrhythmia. Laboratory data reviewed, CBC unremarkable, sodium 141, potassium 4.2 and creatinine 0.8. Currently maintained on aspirin, plavix, atorvastatin, hyzaar and naproxen. Neurology has also seen the patient and has recommended an EEG and discontinuation of plavix. GENERAL: Well-appearing, well-nourished and in no acute distress. NECK: Supple without JVD or thyromegaly. LUNGS: Breath sounds clear to auscultation bilaterally. Respiration equal and unlabored. No wheezes, rales or rhonchi. HEART: Regular rate and rhythm without murmurs, rubs or gallops. S1 and S2 heard. EXTREMITIES: Normal range of motion, no edema. No clubbing or cyanosis. Peripheral pulses intact. ASSESSMENT Vasovagal syncope Peripheral vascular disease with left carotid plaque History of TIA Hypertension Dyslipidemia PLAN Telemetry tracings unremarkable for arrhythmia. No need for additional outpatient Holter monitoring. Recommend increasing activity and ambulation in the halls. Ongoing medical management and evaluation with Dr. Hernandez. Follow up with Dr. Herndon upon discharge. Nurse Practitioner note has been reviewed, I agree with a documented findings and plan of care. Patient was seen and examined. Objective - Vital Signs Vital signs: Vital Signs Temp 97.5 F L 06/17/19 07:14 Pulse 82 06/17/19 07:14 Resp 18 06/17/19 07:14 BP 120/69 06/17/19 07:14 Pulse Ox 95 06/17/19 07:14 Intake & Output 06/16/19 06/17/19 06/17/19 18:59 06:59 18:59 Intake Total 230 Balance 230 Intake: Intake, IV Titration 230 Amount Sodium Chloride 0.9% 1, 80 000 ml @ 20 mls/hr IV . Q24H DANIKA Rx#:[id number] Sodium Chloride 0.9% 1, 150 000 ml @ 75 mls/hr IV . [id number] STA Rx#:[id number] Other: Voiding Method Toilet Toilet Toilet # Voids 1 1 - Labs CBC & Chem 7: 06/17/19 06:51 06/17/19 06:51 Labs: Abnormal Lab Results - Last 24 Hours (Table) 06/17/19 06/17/19 Range/Units 06:51 06:51 Eosinophils # 1.0 H (0-0.7) k/uL Chloride 112 H (98-107) mmol/L
[2019-06-17 11:21] VITALS: BP 135/77; PULSE 73; TEMP 97.9
[2019-06-17 14:24] LABS: Cholesterol 144 mg/dL (<200); HDL Cholesterol 39 mg/dL (40-60); LDL Cholesterol,Calculated 85 mg/dL (0-99); Triglycerides 98 mg/dL (<150)
--- NOTE | 2019-06-17 15:14 | CONS ---
DATE OF CONSULTATION; 06/17/2019 This is a 74-year-old female, she was seen known to me from the past. She was seen in my office dated last April 2 months ago and at that time ultrasound showed right side 16 to 49, left side 50 to 79 percent . Patient has history of hypertension, hyperlipidemia, history of pneumonia, history of COPD. Patient had noticed heart flush and she passed out for a short period time about 45 minute with complete recovery. She was brought to the emergency room and had a complete stroke workup. The patient had a CT scan of the brain which was no evidence of intracranial bleed or any hemorrhage. Also patient had a carotid ultrasound which shows 50-79 percent on the left side. CTA shows a focal stenosis of 90%. There is no history of loss of speech. No history of loss of vision. No history of loss of any motor function. The patient was seen by Neurology and had an EEG done. Recommended continued platelet antiplatelet therapy. MEDICAL HISTORY: History of hypertension, hyperlipidemia, history of pneumonia, history of asthma. On examination, patient was seen in her room. Patient was sitting comfortably. Neck is supple. No bruit appreciated. Chest clear to auscultation. Abdomen is soft. Normal motor function upper and lower extremity. Ultrasound carotid shows 50 to 79. Patient has some left side shows CT angiogram about focal stenosis of 90%. CT scan of the head shows no intermittent intracranial bleed or infarction. Her motor functions are normal. I have discussed with the patient. Patient wants to go home. Discussed with Internal Medicine and Neurology. The patient will need a cardiac clearance on the road. She will need a left carotid endarterectomy. The patient understands and she wants to go home. Will make arrangement to follow up in my office. MMODL / IJN: [id number] / MTDD
--- NOTE | 2019-06-17 20:59 | DS ---
DISCHARGE SUMMARY DATE OF SERVICE: 06/17/2019. FINAL DIAGNOSES: 1. Syncope for evaluation possible vasovagal syncope. 2. Left internal carotid artery stenosis more than 90% with plaque possibly. 3. Hyponatremia, mild. 4. History urinary tract infection. 5. History of transient ischemic attack. 6. Hypertension. 7. Hyperlipidemia. 8. History of previous syncope. 9. History of pneumonia. DISCHARGE DISPOSITION: The patient will be discharged in stable condition with guarded prognosis. Cardiology and vascular surgery cleared the patient for discharge. HISTORY OF PRESENT ILLNESS: This 74-year-old woman with a past medical history of multiple medical problems was admitted with syncope. The syncope was thought to be secondary to vasovagal. Cardiac arrhythmias ruled out but however cardiology/vascular surgery saw the patient. Dr. Hernandez recommended outpatient followup for evaluation. Cardiology recommended outpatient Holter monitoring. The lipid panel was within normal limits. The patient being discharged in stable condition with guarded prognosis. The patient is followed by Dr. Campos in the outpatient setting. DISCHARGE ADVICE AND MEDICATIONS: 1. Discharge diet is cardiac diet. 2. Activity limited until followup. 3. Follow up with Dr. Campos in 1-2 days. DISCHARGE MEDICATIONS: 1. Ecotrin 81 mg daily. 2. Aleve 220 mg daily p.r.n. 3. Losartan 50/12.5 mg p.o. daily. 4. Lipitor 20 mg p.o. daily. MMODL / IJN: [id number] /
== END 2019-06-17 16:15 | disposition home or self-care (01) ==
LOC: EC 19:40 → 1SOBS 21:53
PROVIDERS: ADMIT Hospitalist; ATTEND Hospitalist
DX: R55 Syncope and collapse (principal); I65.22 Occlusion and stenosis of left carotid artery; I73.9 Peripheral vascular disease, unspecified; E87.1 Hypo-osmolality and hyponatremia; I10 Essential (primary) hypertension; J44.9 Chronic obstructive pulmonary disease, unspecified; R94.01 Abnormal electroencephalogram [EEG]; E78.5 Hyperlipidemia, unspecified; F41.9 Anxiety disorder, unspecified; Z79.02 Long term (current) use of antithrombotics/antiplatelets; Z79.82 Long term (current) use of aspirin; Z79.899 Other long term (current) drug therapy; Z79.1 Long term (current) use of non-steroidal anti-inflammatories (NSAID); Z88.2 Allergy status to sulfonamides; Z90.49 Acquired absence of other specified parts of digestive tract; Z86.73 Personal history of transient ischemic attack (TIA), and cerebral infarction without residual deficits; Z87.01 Personal history of pneumonia (recurrent); Z87.440 Personal history of urinary (tract) infections; Z98.42 Cataract extraction status, left eye
CPT/HCPCS: 93005 ×2; 96361 ×3; 96372 ×2; 96360; 99285; 36415; 95816; 93306; 85379; 84439; 80061; 80053; 80048 ×2; 84443; 82550; 83735; 84484; 85025 ×3; 85610; 85730; 81001; 71046; 93880; 70496; 70450; 70498; G0378 ×3; J1644 ×2; Q9967

== ENCOUNTER 2024-03-17 14:19 | Observation (INO) | payer MEDICARE, BC ==
--- NOTE | 2024-03-17 14:41 | ED ---
Chest Pain HPI - General Source: patient, family, RN notes reviewed <Alannah Stephen - Last Filed: 03/17/24 14:42> <Carrie Haro - Last Filed: 03/18/24 03:55> - General Stated Complaint: chest pain/back pain Time Seen by Provider: 03/17/24 14:32 - History of Present Illness Initial Comments: Quick Ovpi-1-firo-old female presents emergency department chief complaint of chest pressure over the past couple of days. She describes this as a intermittent stabbing sensation that is now becoming more constant. Patient was evaluated by her primary care provider explained that she was instructed to report to the emergency department for further evaluation. Patient is on Plavix. Has a history of GA and CVA. (Alannah Stephen) 78-year-old female with history of hypertension, hyperlipidemia, and CVA presenting with chief complaint of chest pain. Patient has had chest pain ongoing for 3 days. She initially was given steroid by her PCP but states that the pain has been persistent. Pain is located in the center of the chest and also in her back. Feels like a pressure-like pain. Worse with movement. No shortness of breath. Admits to headache. No dizziness. No abdominal pain, nausea, vomiting. She saw her PCP today who stated that since symptoms were not improving she should report to the ER. (Carrie Haro) - Related Data Home Medications Medication Instructions Recorded Confirmed Aspirin [Adult Low Dose Aspirin EC] 81 mg PO DAILY 01/02/17 03/17/24 Losartan/Hydrochlorothiazide 1 tab PO DAILY 01/02/17 03/17/24 [Losartan-Hctz 50-12.5 mg Tab] Clopidogrel [Plavix] 75 mg PO DAILY 03/17/24 03/17/24 Latanoprost [Latanoprost 0.005%] 1 drop RIGHT EYE DAILY 03/17/24 03/17/24 Simvastatin [Zocor] 40 mg PO HS 03/17/24 03/17/24 Allergies Allergy/AdvReac Type Severity Reaction Status Date / Time Sulfa (Sulfonamide Allergy Anaphylaxis Verified 03/17/24 19:50 Antibiotics) Review of Systems ROS Other: All systems not noted in ROS Statement are negative. <Alannah Stephen - Last Filed: 03/17/24 14:42> ROS Other: All systems not noted in ROS Statement are negative. <Carrie Haro - Last Filed: 03/18/24 03:55> ROS Statement: Those systems with pertinent positive or pertinent negative responses have been documented in the HPI. Past Medical History Past Medical History: Asthma, CVA/TIA, Hyperlipidemia, Hypertension, Pneumonia Additional Past Medical History / Comment(s): tia 1999, cyst on back of rt eye with surgical removal History of Any Multi-Drug Resistant Organisms: None Reported Past Surgical History: Appendectomy Past Anesthesia/Blood Transfusion Reactions: No Reported Reaction Additional Past Anesthesia/Blood Transfusion Reaction / Comment(s): pt lives with spouse, 1 dog in a single level home taht has 3 steps to enter.pt is independant, no outside services recieved and no medical equipment. pt drives. Past Psychological History: Anxiety Smoking Status: Never smoker Past Alcohol Use History: None Reported Past Drug Use History: None Reported - Past Family History Father History Unknown: Yes Additional Family Medical History / Comment(s): pt was adopted Mother History Unknown: Yes Additional Family Medical History / Comment(s): pt was adopted <Alannah Stephen - Last Filed: 03/17/24 14:42> General Exam <Alannah Stephen - Last Filed: 03/17/24 14:42> Limitations: no limitations General appearance: alert, in no apparent distress Head exam: Present: atraumatic, normocephalic Eye exam: Present: normal appearance, EOMI Neck exam: Present: normal inspection. Absent: meningismus Respiratory exam: Present: normal lung sounds bilaterally. Absent: respiratory distress, wheezes, rales, rhonchi, stridor Cardiovascular Exam: Present: regular rate, normal rhythm, normal heart sounds. Absent: systolic murmur, diastolic murmur, rubs, gallop, clicks Extremities exam: Absent: pedal edema Neurological exam: Present: alert, oriented X3 Psychiatric exam: Present: normal affect, normal mood Skin exam: Present: warm, dry <Carrie Haro - Last Filed: 03/18/24 03:55> - General Exam Comments Initial Comments: Visual Physical Exam Vital signs reviewed General: Well-appearing, nontoxic, no acute distress. Head: Normocephalic, atraumatic Eyes: PERRLA, EOMI ENT: Airway patent Chest: Nonlabored breathing Skin: No visual rash, normal skin tone Neuro: Alert and oriented 3 Musculoskeletal: No gross abnormalities (Alannah Stephen) Course Vital Signs 03/17/24 03/17/24 03/17/24 14:55 19:35 23:40 Temperature 97.5 F L Pulse Rate 110 H 88 77 Respiratory 18 19 17 Rate Blood Pressure 117/63 135/70 112/41 O2 Sat by Pulse 99 98 98 Oximetry 03/18/24 02:00 Temperature 97.6 F Pulse Rate 83 Respiratory 15 Rate Blood Pressure 105/45 O2 Sat by Pulse 96 Oximetry Chest Pain MDM <Alannah Stephen - Last Filed: 03/17/24 14:42> <Carrie Haro - Last Filed: 03/18/24 03:55> - MDM I completed the quick note portion of this chart signed Alannah Stephen PA-C (Alannah Stephen) EKG shows sinus tachycardia ventricular rate 101. NC interval 140. QRS 74. QT 330. QTc 388. Was pt. sent in by a medical professional or institution (LIZA Johnson, [employer] LAYOUT DESIGNER, urgent care, hospital, or [facility]...) When possible be specific @ -Sent by PCP Did you speak to anyone other than the patient for history (EMS, parent, family, police, friend...)? What history was obtained from this source @ -No Did you review nursing and triage notes (agree or disagree)? Why? @ -I reviewed and agree with nursing and triage notes Were old charts reviewed (outside hosp., previous admission, EMS record, old EKG, old radiological studies, urgent care reports/EKG's, [facility] records)? Report findings @ no Differential Diagnosis (chest pain, altered mental status, abdominal pain women, abdominal pain men, vaginal bleeding, weakness, fever, dyspnea, syncope, headache, dizziness, GI bleed, back pain, seizure, CVA, palpatations, mental health, musculoskeletal)? @ --[facility] Differential Chest Pain: Stable Angina, Unstable Angina, STEMI, NSTEMI Aortic Dissection, Pneumothorax, Musculoskeletal, Esophageal Spasm GERD, Cholecystitis, Pancreatitis, Zoster This is not meant to be an all-inclusive list. EKG interpreted by me (3pts min.). @ -As above X-rays interpreted by me (1pt min.). @ -Chest x-ray shows chronic changes suspect underlying COPD. No definite acute process CT interpreted by me (1pt min.). @ -CTA shows no evidence of pulmonary embolism or acute intrathoracic process U/S interpreted by me (1pt. min.). @ -None done What testing was considered but not performed or refused? (CT, X-rays, U/S, labs)? Why? @ -None What meds were considered but not given or refused? Why? @ -None Did you discuss the management of the patient with other professionals (professionals i.e. DrRadha, PA, [employer] LAYOUT DESIGNER, lab, RT, psych nurse, social contact worker, horticulture worker, teacher, chief information security officer, case preparer and liner)? Give summary @ -Spoke with Dr. Flanagan who accepted admission Was smoking cessation discussed for >3mins.? @ -No Was critical care preformed (if so, how long)? @ -No Were there social determinants of health that impacted care today? How? (Homelessness, low income, unemployed, alcoholism, drug addiction, transportation, low edu. Level, literacy, decrease access to med. care, fpc, rehab)? @ -No Was there de-escalation of care discussed even if they declined (Discuss DNR or withdrawal of care, Hospice)? DNR status @ -No What co-morbidities impacted this encounter? (DM, HTN, Smoking, COPD, CAD, Cancer, CVA, ARF, Chemo, Hep., AIDS, mental health diagnosis, sleep apnea, morbid obesity)? @ -None Was patient admitted / discharged? Hospital course, mention meds given and route, prescriptions, significant lab abnormalities, going to OR and other pertinent info. @ -78-year-old female presenting with chief complaint of chest pain for 3 days. Workup initially ordered by triage, patient is later brought back to a room and examined by myself. History and physical exam are conducted. WBC 13.6. Negative troponin. Chest x-ray showed no acute process. I added on a D-dimer which was 1.35, negative CTA of the chest and negative second troponin. Patient will be admitted for observation and evaluation by cardiology in the morning. She is agreeable with this plan. I discussed this case with my attending Dr. Betts Undiagnosed new problem with uncertain prognosis? @ -No Drug Therapy requiring intensive monitoring for toxicity (Heparin, Nitro, Insulin, Cardizem)? @ -No Were any procedures done? @ -No Diagnosis/symptom? @ -Chest pain Acute, or Chronic, or Acute on Chronic? @ -Acute Uncomplicated (without systemic symptoms) or Complicated (systemic symptoms)? @ -Complicated Side effects of treatment? @ -No Exacerbation, Progression, or Severe Exacerbation? @ -No Poses a threat to life or bodily function? How? (Chest pain, USA, GA, pneumonia, PE, COPD, DKA, ARF, appy, cholecystitis, CVA, Diverticulitis, Homicidal, Suicidal, threat to staff... and all critical care pts) @ -Yes (Carrie Haro) Disposition <Alannah Stephen - Last Filed: 03/17/24 14:42> Time of Disposition: 23:45 <Carrie Haro - Last Filed: 03/18/24 03:55> Clinical Impression: Chest pain Disposition: ADMITTED IP TO THIS HOSP Condition: Fair
[2024-03-17 15:31] LABS: ALT 22 U/L (4-34); AST 21 U/L (14-36); African American GFR (CKD) 41 (>60 ml/min/1.73 sqM); Albumin 3.8 g/dL (3.5-5.0); Alkaline Phosphatase 89 U/L (38-126); Anion Gap 5 mmol/L; Blood Urea Nitrogen 33 mg/dL (7-17); Calcium 9.8 mg/dL (8.4-10.2); Carbon Dioxide 28 mmol/L (22-30); Chloride 104 mmol/L (98-107); Glucose 96 mg/dL (74-99); Non-African American GFR(CKD) 35 (>60 ml/min/1.73 sqM); Potassium 3.6 mmol/L (3.5-5.1); Sodium 137 mmol/L (137-145); Total Bilirubin 0.5 mg/dL (0.2-1.3); Total Protein 6.3 g/dL (6.3-8.2)
[2024-03-17 15:37] LABS: INR 0.9 (<1.2)
[2024-03-17 15:44] LABS: Partial Thromboplastin Time 20.6 sec (22.0-30.0); Prothrombin Time 9.8 sec (10.0-12.5)
[2024-03-17 15:47] LABS: Basophils # (A) 0.1 k/uL (0-0.2); Basophils % (A) 0 %; Eosinophils # (A) 0.1 k/uL (0-0.7); Eosinophils % (A) 0 %; HCT 39.8 % (34.0-46.0); HGB 13.4 gm/dL (11.4-16.0); Lymphocytes # (A) 3.5 k/uL (1.0-4.8); Lymphocytes % (A) 25 %; MCH 30.9 pg (25.0-35.0); MCHC 33.7 g/dL (31.0-37.0); MCV 91.7 fL (80.0-100.0); Mean Platelet Volume 7.1; Monocytes # (A) 0.8 k/uL (0-1.0); Monocytes % (A) 6 %; Neutrophils # (A) 9.1 k/uL (1.3-7.7); Neutrophils % (A) 67 %; Platelet Count 312 k/uL (150-450); RBC 4.34 m/uL (3.80-5.40); RDW 13.6 % (11.5-15.5); WBC 13.6 k/uL (3.8-10.6)
--- NOTE | 2024-03-17 16:00 | XR ---
EXAMINATION TYPE: XR chest 2V DATE OF EXAM: 03/17/2024 COMPARISON: 06/15/2019 HISTORY: 78 year-old female chest pain and back pain TECHNIQUE: AP and lateral views FINDINGS: Heart normal size. Mild hyperinflation without consolidation or pleural effusion. Hazy lower lung den sity on the left likely relates to overlying soft tissue and epicardial fat-pad. Episodic calcificati ons throughout the aorta. IMPRESSION: Chronic changes, suspect underlying COPD. No definite acute process.
[2024-03-17] MEDS: ASPIRIN 81 MG PO STA (19:58)
[2024-03-17] MEDS: MORPHINE SULFATE 4 MG/ML SYRINGE IVP STA (19:58)
[2024-03-17] MEDS: SODIUM CHLORIDE 0.9% 1,000 ML IV SCH (19:59)
--- NOTE | 2024-03-17 22:33 | CT ---
EXAMINATION TYPE: CT chest angio for PE CT DLP: 262.8 mGycm, Automated exposure control for dose reduction was used. DATE OF EXAM: 03/17/2024 9:57 PM COMPARISON: Chest radiograph from same day. Multiple CTs of the chest with most recent on . CLINICAL INDICATION:Female, 78 years old with history of Chest pain with difficulty breathing; weakne ss. TECHNIQUE/CONTRAST: CTA scan of the thorax is performed with IV Contrast, patient injected with 60 mL of Isovue 370, MIP images are created and reviewed these are created on a separate workstation.. FINDINGS: Pulmonary Artery: There is no evidence for a filling defect within the pulmonary vasculature to sugge st acute pulmonary embolism. The pulmonary artery is of normal size. Lungs/Pleura: No evidence of focal consolidation, pleural effusion or pneumothorax. Scattered sub-5 m m subpleural nodules are seen. Airway: Large airways are patent. Heart: Heart is within normal limits for size. Vasculature: No evidence of aortic aneurysm. Mediastinum: No gross evidence of adenopathy. Musculoskeletal: No acute osseous abnormalities Soft Tissues/lymph nodes: Unremarkable. Lower neck: No significant findings. Upper Abdomen: Small hiatal hernia. IMPRESSION: No evidence of pulmonary embolism or acute intrathoracic process.
[2024-03-17] MEDS ORDERED: NALOXONE 0.4 MG/ML 1 ML VIAL IV PRN (23:14)
[2024-03-18] MEDS: ACETAMINOPHEN TAB 325 MG TAB PO PRN (06:56)
--- NOTE | 2024-03-18 12:02 | P.CRDCN ---
History of Present Illness History of present illness: This is Dr. John dictating a consult on this patient The patient was interviewed and examined IMPRESSION / ASSESSMENT: Musculoskeletal chest pain and upper back pain with exquisite tenderness with palpation of the upper ribs and the costochondral junctions as well as the interscapular area on the back Cardiology consulted for chest and upper back pain Normal cardiac enzymes No ST segment abnormalities PLAN: Resume Plavix, resume statins and antihypertensive therapy 2D echo and Doppler study C, lipid panel, TSH DC n.p.o. status Patient may be discharged today or tomorrow from a cardiac standpoint and follow-up with me in the office HPI Several days the patient has been experiencing interscapular and upper back pain which has been very bothersome. She also has upper chest pain and the entire front of the chest hurts Denies any recent fall injury or heavy exertion Denies any recent viral infection The documentation in the computer states that she has had an acute myocardial infarction in the past but the patient actually states that someone simply raised a question about an NE many many years back. It was never confirmed nor did she have a coronary angiogram nor was a coronary stent reported. There is no clear documentation of an acute myocardial infarction based on the patient's history ROS: No fever chills or rigors, no cough, phlegm or expectoration, no nausea, vomiting or diarrhea, no hematuria, dysuria, no musculoskeletal complaints, no strokes or seizures, no skin lesions. EXAMINATION: Blood pressure, mild sinus tachycardia Normal heart sounds Exquisite tenderness of the chest wall anteriorly with even the slightest stethoscope pressure Tenderness in the intrascapular region especially in the right interscapular area REVIEW OF LABS, ECG & MEDICAL DATA Normal cardiac enzymes Elevated D-dimer but no evidence for acute pulmonary embolism Twelve-lead EKG shows sinus tachycardia. Patient is in a lot of pain Past Medical History Past Medical History: Asthma, CVA/TIA, Hyperlipidemia, Hypertension, Pneumonia Additional Past Medical History / Comment(s): tia 1999, cyst on back of rt eye with surgical removal History of Any Multi-Drug Resistant Organisms: None Reported Past Surgical History: Appendectomy Past Anesthesia/Blood Transfusion Reactions: No Reported Reaction Additional Past Anesthesia/Blood Transfusion Reaction / Comment(s): pt lives wi th spouse, 1 dog in a single level home taht has 3 steps to enter.pt is independant, no outside services recieved and no medical equipment. pt drives. Past Psychological History: Anxiety Smoking Status: Never smoker Past Alcohol Use History: None Reported Past Drug Use History: None Reported - Past Family History Father History Unknown: Yes Additional Family Medical History / Comment(s): pt was adopted Mother History Unknown: Yes Additional Family Medical History / Comment(s): pt was adopted Medications and Allergies Home Medications Medication Instructions Recorded Confirmed Type Aspirin [Adult Low Dose Aspirin EC] 81 mg PO DAILY 01/02/17 03/17/24 History Clopidogrel [Plavix] 75 mg PO DAILY 03/17/24 03/17/24 History Latanoprost [Latanoprost 0.005%] 1 drop RIGHT EYE DAILY 03/17/24 03/17/24 History Simvastatin [Zocor] 40 mg PO HS 03/17/24 03/17/24 History Allergies Allergy/AdvReac Type Severity Reaction Status Date / Time Sulfa (Sulfonamide Allergy Anaphylaxis Verified 03/17/24 19:50 Antibiotics) Physical Exam Vitals: Vital Signs Temp Pulse Resp BP Pulse Ox 03/18/24 06:50 97.8 F 94 20 127/61 96 03/18/24 02:00 97.6 F 83 15 105/45 96 03/17/24 23:40 77 17 112/41 98 03/17/24 19:35 88 19 135/70 98 03/17/24 14:55 97.5 F L 110 H 18 117/63 99 Results 03/17/24 14:57 03/17/24 14:57 Cardiac Enzymes 03/17/24 03/17/24 03/17/24 Range/Units 14:57 14:57 19:56 AST 21 (14-36) U/L Troponin I <0.012 <0.012 (0.000-0.034) ng/mL 03/17/24 Range/Units 23:30 AST (14-36) U/L Troponin I <0.012 (0.000-0.034) ng/mL Coagulation 03/17/24 Range/Units 14:57 PT 9.8 L (10.0-12.5) sec APTT 20.6 L (22.0-30.0) sec CBC 03/17/24 Range/Units 14:57 WBC 13.6 H (3.8-10.6) k/uL RBC 4.34 (3.80-5.40) m/uL Hgb 13.4 (11.4-16.0) gm/dL Hct 39.8 (34.0-46.0) % Plt Count 312 (150-450) k/uL Comprehensive Metabolic Panel 03/17/24 Range/Units 14:57 Sodium 137 (137-145) mmol/L Potassium 3.6 (3.5-5.1) mmol/L Chloride 104 (98-107) mmol/L Carbon Dioxide 28 (22-30) mmol/L BUN 33 H (7-17) mg/dL Creatinine 1.42 H (0.52-1.04) mg/dL Glucose 96 (74-99) mg/dL Calcium 9.8 (8.4-10.2) mg/dL AST 21 (14-36) U/L ALT 22 (4-34) U/L Alkaline Phosphatase 89 (38-126) U/L Total Protein 6.3 (6.3-8.2) g/dL Albumin 3.8 (3.5-5.0) g/dL Current Medications Generic Name Dose Route Start Last Admin Trade Name Freq PRN Reason Stop Dose Admin Acetaminophen 650 mg 03/17/24 23:14 03/18/24 06:56 Acetaminophen Tab 325 Mg Tab PO 650 mg Q6HR PRN Administration Mild Pain or Fever > 100.5 Sodium Chloride 1,000 mls @ 50 mls/hr 03/17/24 19:30 03/17/24 19:59 Saline 0.9% IV 50 mls/hr .Q20H DANIKA Administration Naloxone HCl 0.2 mg 03/17/24 23:14 Naloxone 0.4 Mg/Ml 1 Ml Vial IV Q2M PRN Opioid Reversal 03/17/24 14:57 03/17/24 14:57
[2024-03-18] MEDS ORDERED: KETOROLAC 15 MG/ML 1 ML VIAL IVP PRN (12:30)
--- NOTE | 2024-03-18 13:17 | CA ---
Transthoracic Echo Report Name: Mamie Cameron Age: 78 Gender: F : 1945 Exam Date: 03/18/2024 08:37 Exam Location: [facility] Ht (in): 63 Wt (lb): 155 Ordering Physician: Carrie Haro Attending/Referring Phys: Yarn Wrapper Claudia Harris RDCS Procedure CPT: Indications: Chest Pain Cardiac Hx: Technical Quality: Fair Contrast 1: Total Dose (mL): Contrast 2: Total Dose (mL): MEASUREMENTS (Male / Female) Normal Values 2D ECHO LV Diastolic Diameter PLAX 4.2 cm 4.2 - 5.9 / 3.9 - 5.3 cm LV Systolic Diameter PLAX 2.9 cm IVS Diastolic Thickness 1.0 cm 0.6 - 1.0 / 0.6 - 0.9 cm LVPW Diastolic Thickness 0.8 cm 0.6 - 1.0 / 0.6 - 0.9 cm LV Relative Wall Thickness 0.4 RV Internal Dim ED PLAX 1.6 cm LA Systolic Diameter LX 2.7 cm 3.0 - 4.0 / 2.7 - 3.8 cm LV Diastolic Volume MOD BP 24.6 cm??? 67 - 155 / 56 - 104 cm??? LV Systolic Volume MOD BP 7.3 cm??? 22 - 58 / 19 - 49 cm??? LV Ejection Fraction MOD BP 70.3 % >= 55 % LV Cardiac Index MOD BP 813.6 cm???/min???m??? LV Diastolic Volume MOD 4C 17.0 cm??? LV Systolic Volume MOD 4C 7.9 cm??? LV Ejection Fraction MOD 4C 53.7 % LV Cardiac Index MOD 4C 430.0 cm???/min???m??? LV Diastolic Length 4C 5.3 cm LV Systolic Length 4C 5.1 cm LV Diastolic Volume MOD 2C 30.9 cm??? LV Systolic Volume MOD 2C 6.7 cm??? LV Ejection Fraction MOD 2C 78.3 % LV Cardiac Index MOD 2C 1136.2 cm???/min???m??? LV Diastolic Length 2C 6.2 cm LV Systolic Length 2C 5.0 cm M-MODE Aortic Root Diameter MM 2.5 cm LA Systolic Diameter MM 3.2 cm LA Ao Ratio MM 1.3 AV Cusp Separation MM 1.4 cm DOPPLER Mitral E Point Velocity 64.3 cm/s Mitral A Point Velocity 96.1 cm/s Mitral E to A Ratio 0.7 MV Deceleration Time 293.3 ms MV E' Velocity 5.6 cm/s Mitral E to MV E' Ratio 11.4 FINDINGS Left Ventricle Left ventricular ejection fraction is estimated at 55-60 %. Normal left ventricular wall motion. Left ventricular cavity size normal. No obvious regional wall motion abnormalities. Right Ventricle Normal right ventricular size and function. Unable to estimate the right ventricular systolic pressure. Right Atrium Normal right atrial size. Left Atrium Normal left atrial size. Mitral Valve Structurally normal mitral valve. Trace mitral regurgitation. No mitral stenosis. Aortic Valve Trileaflet aortic valve. No aortic regurgitation. Diffuse thickening (sclerosis) of the aortic valve cusps without reduced excursion. Tricuspid Valve Structurally normal tricuspid valve. Trace to mild tricuspid regurgitation. No tricuspid stenosis. Pulmonic Valve Structurally normal pulmonic valve. Trace pulmonic regurgitation. No pulmonic stenosis. Pericardium Echo free space anterior to the right ventricle likely represents a fat pad. Aorta Normal size aortic root and proximal ascending aorta. CONCLUSIONS Diagnosis chest pain 2D echo shows preserved LV systolic function Normal RV size and function Aortic sclerosis without stenosis Thickened pericardium with minimal effusion Previewed by: Dr. Kvng John MD (Electronically Signed) Final Date: 18 March 2024 13:16
[2024-03-18 17:04] LABS: Chol/HDL Ratio 2.72 Ratio; LDL Cholesterol,Calculated 76.3 mg/dL (0.0-131.0)
[2024-03-18] MEDS: ATORVASTATIN 20 MG TAB PO SCH (20:46)
[2024-03-18] MEDS ORDERED: NON FORMULARY DRUG (Simvastatin 40 MG Tab) PO SCH (21:00)
[2024-03-19 08:12] VITALS: BP 113/75; PULSE 90; RESP 16; TEMP 98.2
[2024-03-19] MEDS: CLOPIDOGREL 75 MG TAB PO SCH (08:19)
[2024-03-19] MEDS: LATANOPROST 0.005% OPHTH DROPS 2.5 ML BTL RIGHT EYE SCH (08:19)
[2024-03-19] MEDS: ASPIRIN 81 MG PO SCH (08:19)
== END 2024-03-19 14:50 | disposition home or self-care (01) ==
LOC: EC 14:19 → 1SOBS 23:07 → 6NMEDSUR 23:53
PROVIDERS: ADMIT Internal Medicine; ATTEND Internal Medicine
DX: R07.89 Other chest pain (principal); M54.6 Pain in thoracic spine; I10 Essential (primary) hypertension; E78.5 Hyperlipidemia, unspecified; J45.909 Unspecified asthma, uncomplicated; F41.9 Anxiety disorder, unspecified; I25.2 Old myocardial infarction; Z86.73 Personal history of transient ischemic attack (TIA), and cerebral infarction without residual deficits; Z79.02 Long term (current) use of antithrombotics/antiplatelets; Z79.82 Long term (current) use of aspirin; Z79.899 Other long term (current) drug therapy; Z88.2 Allergy status to sulfonamides
CPT/HCPCS: 36415; 93005; 93306; 85379; 80061; 80053; 83735; 84443; 84484; 85025; 85610; 85730; 83036; 71046; 71275; G0378 ×3; J2270; Q9967; 96374; 99285